=== PATIENT | male | born 1940 | race Caucasian/White ===

== ENCOUNTER → 2017-11-04 | Outpatient (CLI) | payer OTHER | LOC: BMCIMAGING 18:11 | PROVIDERS: ATTEND Emergency Medicine | DX: R05 Cough (principal); R06.02 Shortness of breath ==

== ENCOUNTER 2019-02-03 11:57 | Inpatient (IN) | payer OTHER ==
[2019-02-03 12:45] LABS: PLATELET COUNT 217 10^3/uL (150-400)
[2019-02-03] MEDS ORDERED: NS 2,400 ML IV ONE (13:02)
[2019-02-03 13:15] LABS: INR 1.09 (0.83-1.16); PROTIME(PATIENT) 13.7 SEC (12.0-15.0)
[2019-02-03] MEDS ORDERED: AMPICILLIN/SULBACTAM 3 GM in NS 100 ML IV ONE (13:20)
--- NOTE | 2019-02-03 13:26 | EDPHY ---
H & P Stated Complaint: N/V, dizzy/weak, SOB, cough x2D. Time Seen by Provider: 02/03/19 13:00 HPI/ROS: CHIEF COMPLAINT: Shortness of breath, chest pain, dizziness, vomiting HISTORY OF PRESENT ILLNESS: 78-year-old male presents emergency department reporting that for the last 2 days he has felt "crappy". Patient complains of feeling short of breath with even simple exertion, feeling dizzy, lightheaded, near syncopal, and has had vomiting. No documented fever. He spent all day yesterday in bed. He went to the [facility] primary care physician today and was noted to be tachycardic and was referred to the emergency department. Of note the patient was recently discharged from [facility] after alcohol detox treatment. This was last week. Also notes pain in the right lateral chest wall with deep inspiration. Denies trauma. Patient denies any ill contacts. No history of cardiac issues. No sense palpitations, diarrhea, urinary complaints, or headache. REVIEW OF SYSTEMS: A comprehensive 10 system review of systems was reviewed and is otherwise negative aside from elements mentioned in the history of present illness and medical decision making. PAST MEDICAL HISTORY: COPD, alcohol abuse, recent detox from alcohol. SOCIAL HISTORY: Here with his . Nonsmoker. VITAL SIGNS Reviewed by me. The tachycardic to 110, temperature 37.3 degrees, 118/56. GENERAL: Well-developed, well-nourished, reporting significant shortness of breath with simple movements. HEENT: Atraumatic. Eyes: No icterus, no injection. Mouth: moist mucous membranes. No erythema or lesions. Neck: supple with no adenopathy. LUNGS: Diminished breath sounds throughout. No wheezes. No rhonchi or rales. CARDIAC: Tachycardic but regular. Slightly distant. ABDOMEN: Soft, mild right upper quadrant tenderness. Nondistended. No guarding or rebound. BACK: No CVA tenderness. EXTREMITIES: No trauma. No edema. Range of motion is normal throughout. No tremor. NEURO: Alert and oriented, grossly nonfocal. SKIN: Quite warm to the touch, no rash. PSYCHIATRIC: Normal mentation, no agitation. - Personal History Current Tetanus/Diphtheria Vaccine: Yes - Medical/Surgical History Hx Asthma: No Hx Chronic Respiratory Disease: No Hx Diabetes: No Hx Cardiac Disease: No Hx Renal Disease: No Hx Cirrhosis: No Hx Alcoholism: No Hx HIV/AIDS: No Hx Splenectomy or Spleen Trauma: No Other PMH: knee replaced - Social History Smoking Status: Former smoker Constitutional: Initial Vital Signs Temperature (C) 37.3 C 02/03/19 12:01 Heart Rate 110 H 02/03/19 12:01 Respiratory Rate 20 02/03/19 12:01 Blood Pressure 118/56 L 02/03/19 12:01 Allergies/Adverse Reactions: No Known Allergies Allergy (Verified 02/03/19 12:01) Home Medications: Medication Instructions Recorded Aspirin [Aspirin 81mg (OTC)] 81 mg PO DAILY 12/03/12 Tiotropium Inhaler [Spiriva 1 inh IH DAILY 12/03/12 Inhaler (RX)] celeCOXIB [Celebrex (RX)] 200 mg PO DAILY 12/03/12 Disulfiram [Antabuse 250 MG (*)] 250 mg PO DAILY 02/03/19 Tadalafil 5 mg PO DAILY 02/03/19 amLODIPine BESYLATE [Norvasc 10 mg 10 mg PO DAILY 02/03/19 (*)] buPROPion XL [Wellbutrin Xl] 150 mg PO DAILY 02/03/19 Medical Decision Making - Diagnostics Imaging Results: Imaging Impressions Chest X-Ray 02/03/19 12:35 Impression: Extensive right upper lobe consolidation compatible with pneumonia, new. ED Course/Re-evaluation: 78-year-old male presents emergency department with shortness of breath, tachycardia, and fever. He has been vomiting and also has history of alcohol withdrawal and recent detox complicated by vomiting. IV was placed. Patient's EKG demonstrates sinus tachycardia, first-degree AV block with prolonged CA interval, short runs of ventricular trigeminy. Chest x-ray: Dense right upper lobe consolidation. Lactic acid 3.0. Patient was started on a 30 cc/kilos bolus. Severe sepsis was declared at 1:05 p.m.. Patient received Levaquin. Unasyn was added given the concern about aspiration pneumonia. Course discussed with the hospitalist service. Patient will be admitted to Dr. Denise. Repeat lactic acid: Severe Sepsis/Septic Shock Care Note The patient presents to the ED with pneumonia identified as an acute infection. The patient did have evidence of end-organ dysfunction and met criteria for severe sepsis. This condition was identified by myself at 105 p.m.. The patients vital signs are 118/56, 110, 20, 90%, 37.3. The patient has a venous lactic acid performed within 3 hours of the identification of severe sepsis which was found to be 3.1. The patient has blood cultures drawn and received Levaquin and Unasyn IV, per the severe sepsis treatment protocol. The initial lactate was elevated and rechecked within 6 hours of the identification time of severe sepsis and found to be: 1.2. Differential Diagnosis: Differential diagnosis for the patient's shortness of breath was considered including but not limited to pulmonary infectious processes, aspiration, COPD exacerbation, pulmonary emboli, pulmonary edema, congestive heart failure, and cardiac causes. [facility] [place] Laboratory Results: Laboratory Results 02/03/19 12:35 02/03/19 12:35 02/03/19 02/03/19 02/03/19 12:35 12:35 12:35 WBC 17.41 10^3/uL H 10^3/uL (3.80-9.50) RBC 3.42 10^6/uL L 10^6/uL (4.40-6.38) Hgb 11.8 g/dL L g/dL (13.7-17.5) Hct 34.6 % L % (40.0-51.0) MCV 101.2 fL H fL (81.5-99.8) MCH 34.5 pg H pg (27.9-34.1) MCHC 34.1 g/dL g/dL (32.4-36.7) RDW 11.2 % L % (11.5-15.2) Plt Count 217 10^3/uL 10^3/uL (150-400) MPV 9.4 fL fL (8.7-11.7) Neut % (Auto) 87.5 % H % (39.3-74.2) Lymph % (Auto) 3.0 % L % (15.0-45.0) [place] % (Auto) 8.4 % % (4.5-13.0) Eos % (Auto) 0.0 % L % (0.6-7.6) Baso % (Auto) 0.2 % L % (0.3-1.7) Nucleat RBC Rel Count 0.0 % % (0.0-0.2) Absolute Neuts (auto) 15.23 10^3/uL H 10^3/uL (1.70-6.50) Absolute Lymphs (auto) 0.52 10^3/uL L 10^3/uL (1.00-3.00) Absolute Monos (auto) 1.46 10^3/uL H 10^3/uL (0.30-0.80) Absolute Eos (auto) 0.00 10^3/uL L 10^3/uL (0.03-0.40) Absolute Basos (auto) 0.03 10^3/uL 10^3/uL (0.02-0.10) Absolute Nucleated RBC 0.00 10^3/uL 10^3/uL (0-0.01) Immature Gran % 0.9 % % (0.0-1.1) Immature Gran # 0.16 10^3/uL H 10^3/uL (0.00-0.10) RBC/WBC/PLT Morphology TNP Platelet Estimate TNP PT INR APTT VBG Lactic Acid 3.0 mmol/L H mmol/L (0.7-2.1) Sodium 132 mEq/L L mEq/L (135-145) Potassium 4.2 mEq/L mEq/L (3.5-5.2) Chloride 95 mEq/L L mEq/L (97-110) Carbon Dioxide 23 mEq/l mEq/l (22-31) Anion Gap 14 mEq/L mEq/L (6-14) BUN 22 mg/dL mg/dL (7-23) Creatinine 1.2 mg/dL mg/dL (0.7-1.3) Estimated GFR 59 Glucose 173 mg/dL H mg/dL (70-100) Calcium 8.8 mg/dL mg/dL (8.5-10.4) Total Bilirubin Conjugated Bilirubin Unconjugated Bilirubin AST ALT Alkaline Phosphatase Total Protein Albumin Lipase Nasal Influenza A PCR Nasal Influenza B PCR Ethyl Alcohol RSV (PCR) 02/03/19 02/03/19 02/03/19 12:33 12:30 12:30 WBC RBC Hgb Hct MCV MCH MCHC RDW Plt Count MPV Neut % (Auto) Lymph % (Auto) [place] % (Auto) Eos % (Auto) Baso % (Auto) Nucleat RBC Rel Count Absolute Neuts (auto) Absolute Lymphs (auto) Absolute Monos (auto) Absolute Eos (auto) Absolute Basos (auto) Absolute Nucleated RBC Immature Gran % Immature Gran # RBC/WBC/PLT Morphology Platelet Estimate PT 13.7 SEC SEC (12.0-15.0) INR 1.09 (0.83-1.16) APTT 31.4 SEC SEC (23.0-38.0) VBG Lactic Acid Sodium Potassium Chloride Carbon Dioxide Anion Gap BUN Creatinine Estimated GFR Glucose Calcium Total Bilirubin 0.8 mg/dL mg/dL (0.1-1.4) Conjugated Bilirubin 0.3 mg/dL mg/dL (0.0-0.5) Unconjugated Bilirubin 0.5 mg/dL mg/dL (0.0-1.1) AST 13 IU/L L IU/L (17-59) ALT 23 IU/L IU/L (21-72) Alkaline Phosphatase 68 IU/L IU/L (38-126) Total Protein 6.0 g/dL L g/dL (6.3-8.2) Albumin 3.5 g/dL g/dL (3.5-5.0) Lipase 17 IU/L L IU/L (23-300) Nasal Influenza A PCR NEGATIVE FOR FLU A (NEGATIVE) Nasal Influenza B PCR NEGATIVE FOR FLU B (NEGATIVE) Ethyl Alcohol < 10 mg/dL mg/dL (0-10) RSV (PCR) NEGATIVE FOR RSV (NEGATIVE) Medications Given: Sodium Chloride (Ns) 1,000 mls @ 125 mls/hr IV CONT KITTY Stop: 02/04/19 22:44 Last Admin: 02/03/19 15:38 Dose: 1,000 mls Thiamine HCl 500 mg/ Sodium (Chloride) 105 mls @ 210 mls/hr IV DAILY KITTY Stop: 08/02/19 15:29 Last Admin: 02/03/19 16:22 Dose: 105 mls Ampicillin Sodium/Sulbactam (Sodium 3 gm/ Sodium Chloride) 100 mls @ 200 mls/ hr IV Q6HRS KITTY PRN Reason: Protocol Stop: 03/05/19 17:59 Last Admin: 02/03/19 18:03 Dose: 100 mls Discontinued Medications Albuterol (Proventil Neb) 3 ml IH EDNOW ONE Stop: 02/03/19 13:32 Last Admin: 02/03/19 13:48 Dose: 3 ml Levofloxacin/Dextrose (Levaquin 750 Mg (Premix)) 150 mls @ 100 mls/hr IV EDNOW ONE PRN Reason: Protocol Stop: 02/03/19 14:31 Last Admin: 02/03/19 13:02 Dose: 150 mls Sodium Chloride (Ns) 2,400 mls @ 4,800 mls/hr 30 ml/kg infuse over 30 min ( 2400 ml) IV EDNOW ONE PRN Reason: Protocol Stop: 02/03/19 13:31 Last Admin: 02/03/19 13:05 Dose: 2,400 mls Ampicillin Sodium/Sulbactam (Sodium 3 gm/ Sodium Chloride) 100 mls @ 200 mls/ hr IV EDNOW ONE PRN Reason: Protocol Stop: 02/03/19 13:49 Last Admin: 02/03/19 13:48 Dose: 100 mls Departure - [facility] [place] [facility] Clinical Impression: Hypoxia Pneumonia Qualifiers: Pneumonia type: aspiration pneumonia Aspiration pneumonia type: unspecified Laterality: right Lung location: upper lobe of lung Qualified Code(s): J69.0 - Pneumonitis due to inhalation of food and vomit Dyspnea Qualifiers: Dyspnea type: shortness of breath Qualified Code(s): R06.02 - Shortness of breath; R06.00 - Dyspnea, unspecified; R06.01 - Orthopnea Condition: Fair
[2019-02-03] MEDS ORDERED: ALBUTEROL 3 ML DEYVIAL IH ONE (13:31)
[2019-02-03] MEDS ORDERED: ONDANSETRON DISINTEGRATING 4 MG TAB PO PRN (14:33)
[2019-02-03] MEDS ORDERED: ONDANSETRON 4 MG/2 ML VIAL IVP PRN (14:33)
[2019-02-03] MEDS ORDERED: FLUMAZENIL 0.5 MG/5 ML MDV IVP PRN (14:46)
--- NOTE | 2019-02-03 15:25 | PDGENHP ---
<Rasheeda Stearns - Last Filed: 02/03/19 15:40> History and Physical - Chief Complaint Lightheadedness, vomiting, general malaise - History of Present Illness 78 y/o male w/ hx of COPD and etoh abuse presents w/ 2 days worth of feeling "like crap," which he describes as lightheadedness (pre-syncopal sensation) and non-bloody vomit. He also c/o ZENG w/simple tasks which he normally does not experience. He reports waking up soaking wet one night, however cannot report whether he was feverish. [facility]. CXR reveals an upper right lobe pneumonia. Denies CP, palpitations, nausea, diarrhea. He is being admitted for further work-up, treatment, and monitoring. History Information - Allergies/Home Medication List Allergies/Adverse Reactions: No Known Allergies Allergy (Verified 02/03/19 12:01) Home Medications: Aspirin [Aspirin 81mg (OTC)] 81 mg PO DAILY 12/03/12 [Last Taken 02/03/19] Tiotropium Inhaler [Spiriva Inhaler (RX)] 1 inh IH DAILY 12/03/12 [Last Taken ] celeCOXIB [Celebrex (RX)] 200 mg PO DAILY 12/03/12 [Last Taken 02/03/19] Disulfiram [Antabuse 250 MG (*)] 250 mg PO DAILY 02/03/19 [Last Taken 02/03/19] Tadalafil 5 mg PO DAILY 02/03/19 [Last Taken 02/03/19] amLODIPine BESYLATE [Norvasc 10 mg (*)] 10 mg PO DAILY 02/03/19 [Last Taken ] buPROPion XL [Wellbutrin Xl] 150 mg PO DAILY 02/03/19 [Last Taken 02/03/19] I have personally reviewed and updated: family history, medical history, social history, surgical history - Past Medical History COPD Additional medical history: Etoh abuse. Allergic rhinitis. BPH. Insomnia. Depression - Surgical History Reports: no pertinent surgical hx - Family History Positive for: cancer, CAD - Social History Smoking Status: Former smoker Tobacco Use: Chew (daily. 1/2-1 can a day.) Alcohol Use: Sober (Sober for a few weeks per pt. Recently completed detox program a week ago. Reports drinking heavily for years. Wil Chung, either 1 /2 pint or a bottle daily depending on the day of the week.) Drug Use: None Additional social history: Works at [employer], teaches students how to drive buses. Review of Systems Review of Systems: ROS: 10pt was reviewed & negative except for what was stated in HPI & below Physical Exam Physical Exam: Lab data and imaging were reviewed. Case discussed w/admitting physician, Dr. Sanya Grey WBC: 17.41 w/ left shift Na: 132 Lactic acid: 3.0-1.2 BUN/Cr: 22/1.2 CXR: right upper lobe pna Temp Pulse Resp BP Pulse Ox 37 C 89 18 117/71 92 02/03/19 13:33 02/03/19 14:58 02/03/19 14:58 02/03/19 14:58 02/03/19 14:58 Constitutional: uncomfortable, other (Moderately distressed pt) Eyes: PERRL, anicteric sclera, EOMI Ears, Nose, Mouth, Throat: hearing normal, ears appear normal, no oral mucosal ulcers, poor dentition, dry mucous membranes Cardiovascular: regular rate and rhythym, tachycardia Peripheral Pulses: 2+: dorsalis-pedis (R) (Radial 2+), dorsalis-pedis (L) ( Radial 2+) Respiratory: reduced air movement, rhonchi Gastrointestinal: normoactive bowel sounds, soft, non-tender abdomen, no palpable masses Genitourinary: no bladder fullness, no bladder tenderness Skin: warm, normal color, no rashes or abrasions, no fluctuance, no induration, No mottled Musculoskeletal: full muscle strength, no muscle tenderness, normal joint ROM, no joint effusions Neurologic: AAOx3, sensation intact bilaterally, CN II-XII Intact Psychiatric: interacting appropriately, not encephalopathic, thought process linear, anxious Lymph, Heme, Immunologic: no cervical LAD, no supraclavicular LAD Lab Data & Imaging Review 02/03/19 12:35 02/03/19 12:35 WBC 17.41 10^3/uL (3.80-9.50) H 02/03/19 12:35 RBC 3.42 10^6/uL (4.40-6.38) L 02/03/19 12:35 Hgb 11.8 g/dL (13.7-17.5) L 02/03/19 12:35 Hct 34.6 % (40.0-51.0) L 02/03/19 12:35 MCV 101.2 fL (81.5-99.8) H 02/03/19 12:35 MCH 34.5 pg (27.9-34.1) H 02/03/19 12:35 MCHC 34.1 g/dL (32.4-36.7) 02/03/19 12:35 RDW 11.2 % (11.5-15.2) L 02/03/19 12:35 Plt Count 217 10^3/uL (150-400) 02/03/19 12:35 MPV 9.4 fL (8.7-11.7) 02/03/19 12:35 Neut % (Auto) 87.5 % (39.3-74.2) H 02/03/19 12:35 Lymph % (Auto) 3.0 % (15.0-45.0) L 02/03/19 12:35 [place] % (Auto) 8.4 % (4.5-13.0) 02/03/19 12:35 Eos % (Auto) 0.0 % (0.6-7.6) L 02/03/19 12:35 Baso % (Auto) 0.2 % (0.3-1.7) L 02/03/19 12:35 Nucleat RBC Rel Count 0.0 % (0.0-0.2) 02/03/19 12:35 Absolute Neuts (auto) 15.23 10^3/uL (1.70-6.50) H 02/03/19 12:35 Absolute Lymphs (auto) 0.52 10^3/uL (1.00-3.00) L 02/03/19 12:35 Absolute Monos (auto) 1.46 10^3/uL (0.30-0.80) H 02/03/19 12:35 Absolute Eos (auto) 0.00 10^3/uL (0.03-0.40) L 02/03/19 12:35 Absolute Basos (auto) 0.03 10^3/uL (0.02-0.10) 02/03/19 12:35 Absolute Nucleated RBC 0.00 10^3/uL (0-0.01) 02/03/19 12:35 Immature Gran % 0.9 % (0.0-1.1) 02/03/19 12:35 Immature Gran # 0.16 10^3/uL (0.00-0.10) H 02/03/19 12:35 RBC/WBC/PLT Morphology TNP 02/03/19 12:35 Platelet Estimate TNP 02/03/19 12:35 PT 13.7 SEC (12.0-15.0) 02/03/19 12:30 INR 1.09 (0.83-1.16) 02/03/19 12:30 APTT 31.4 SEC (23.0-38.0) 02/03/19 12:30 VBG Lactic Acid 1.2 mmol/L (0.7-2.1) 02/03/19 13:50 Sodium 132 mEq/L (135-145) L 02/03/19 12:35 Potassium 4.2 mEq/L (3.5-5.2) 02/03/19 12:35 Chloride 95 mEq/L (97-110) L 02/03/19 12:35 Carbon Dioxide 23 mEq/l (22-31) 02/03/19 12:35 Anion Gap 14 mEq/L (6-14) 02/03/19 12:35 BUN 22 mg/dL (7-23) 02/03/19 12:35 Creatinine 1.2 mg/dL (0.7-1.3) 02/03/19 12:35 Estimated GFR 59 02/03/19 12:35 Glucose 173 mg/dL (70-100) H 02/03/19 12:35 Calcium 8.8 mg/dL (8.5-10.4) 02/03/19 12:35 Total Bilirubin 0.8 mg/dL (0.1-1.4) 02/03/19 12:33 Conjugated Bilirubin 0.3 mg/dL (0.0-0.5) 02/03/19 12:33 Unconjugated Bilirubin 0.5 mg/dL (0.0-1.1) 02/03/19 12:33 AST 13 IU/L (17-59) L 02/03/19 12:33 ALT 23 IU/L (21-72) 02/03/19 12:33 Alkaline Phosphatase 68 IU/L (38-126) 02/03/19 12:33 POC Troponin I 0.01 ng/mL (0.00-0.08) 02/03/19 13:29 Total Protein 6.0 g/dL (6.3-8.2) L 02/03/19 12:33 Albumin 3.5 g/dL (3.5-5.0) 02/03/19 12:33 Lipase 17 IU/L (23-300) L 02/03/19 12:33 Nasal Influenza A PCR NEGATIVE FOR FLU A (NEGATIVE) 02/03/19 12:30 Nasal Influenza B PCR NEGATIVE FOR FLU B (NEGATIVE) 02/03/19 12:30 Ethyl Alcohol < 10 mg/dL (0-10) 02/03/19 12:33 RSV (PCR) NEGATIVE FOR RSV (NEGATIVE) 02/03/19 12:30 Assessment & Plan Plan: 78 y/o male w/hx of COPD and etoh abuse presents w/ 2 days of general malaise, subjective fever, lightheadedness and vomiting. He initially presented in severe sepsis w/ high white count, tachy, and elevated lactic acid. He received IV abx and bolus dose of fluids from ED and since that time period, his vitals have stabilized and lactic acid count was reduced. Current vitals: BP 117/71, pulse 89, Resp 18, 37.0c, 92% RA. #Suspected aspiration pneumonia: He reports waking up and actively vomiting. He is a poor historian. Received Levaquin and Unasyn in ED. -Blood cultures pending -Influenza and RSV negative; full resp panel pending -Will cont to treat aspiration PNA over CAP w/ unasyn -CBC/CMP in AM -OT to evaluate and treat -Incentive spirometry #Etoh abuse: Recently completed a detox program a week ago. -Cont antabuse -CIWA scale -Thiamine bolus + maintenance -Case management consulted #Hypovolemia hyponatremia: Suspected for active vomiting and decreased PO intake -Received bolus in ED; cont IVF x 2 bags -CBC/CMP in AM #COPD: Received albuterol treatment in ED. -Cont Spiriva -Incentive spirometry Diet: Regular VTE ppx: Heparin subq Code: Full Dispo: Admit to obs <Sanya Denise - Last Filed: 02/03/19 19:13> History and Physical - History of Present Illness Review of Systems Review of Systems: Physical Exam Physical Exam: Temp Pulse Resp BP Pulse Ox 37.1 C 98 20 128/59 H 95 02/03/19 15:26 02/03/19 15:26 02/03/19 15:26 02/03/19 15:26 02/03/19 15:26 O2 (L/minute) 2 Lab Data & Imaging Review 02/03/19 12:35 02/03/19 12:35 WBC 17.41 10^3/uL (3.80-9.50) H 02/03/19 12:35 RBC 3.42 10^6/uL (4.40-6.38) L 02/03/19 12:35 Hgb 11.8 g/dL (13.7-17.5) L 02/03/19 12:35 Hct 34.6 % (40.0-51.0) L 02/03/19 12:35 MCV 101.2 fL (81.5-99.8) H 02/03/19 12:35 MCH 34.5 pg (27.9-34.1) H 02/03/19 12:35 MCHC 34.1 g/dL (32.4-36.7) 02/03/19 12:35 RDW 11.2 % (11.5-15.2) L 02/03/19 12:35 Plt Count 217 10^3/uL (150-400) 02/03/19 12:35 MPV 9.4 fL (8.7-11.7) 02/03/19 12:35 Neut % (Auto) 87.5 % (39.3-74.2) H 02/03/19 12:35 Lymph % (Auto) 3.0 % (15.0-45.0) L 02/03/19 12:35 [place] % (Auto) 8.4 % (4.5-13.0) 02/03/19 12:35 Eos % (Auto) 0.0 % (0.6-7.6) L 02/03/19 12:35 Baso % (Auto) 0.2 % (0.3-1.7) L 02/03/19 12:35 Nucleat RBC Rel Count 0.0 % (0.0-0.2) 02/03/19 12:35 Absolute Neuts (auto) 15.23 10^3/uL (1.70-6.50) H 02/03/19 12:35 Absolute Lymphs (auto) 0.52 10^3/uL (1.00-3.00) L 02/03/19 12:35 Absolute Monos (auto) 1.46 10^3/uL (0.30-0.80) H 02/03/19 12:35 Absolute Eos (auto) 0.00 10^3/uL (0.03-0.40) L 02/03/19 12:35 Absolute Basos (auto) 0.03 10^3/uL (0.02-0.10) 02/03/19 12:35 Absolute Nucleated RBC 0.00 10^3/uL (0-0.01) 02/03/19 12:35 Immature Gran % 0.9 % (0.0-1.1) 02/03/19 12:35 Immature Gran # 0.16 10^3/uL (0.00-0.10) H 02/03/19 12:35 RBC/WBC/PLT Morphology TNP 02/03/19 12:35 Platelet Estimate TNP 02/03/19 12:35 PT 13.7 SEC (12.0-15.0) 02/03/19 12:30 INR 1.09 (0.83-1.16) 02/03/19 12:30 APTT 31.4 SEC (23.0-38.0) 02/03/19 12:30 VBG Lactic Acid 1.2 mmol/L (0.7-2.1) 02/03/19 13:50 Sodium 132 mEq/L (135-145) L 02/03/19 12:35 Potassium 4.2 mEq/L (3.5-5.2) 02/03/19 12:35 Chloride 95 mEq/L (97-110) L 02/03/19 12:35 Carbon Dioxide 23 mEq/l (22-31) 02/03/19 12:35 Anion Gap 14 mEq/L (6-14) 02/03/19 12:35 BUN 22 mg/dL (7-23) 02/03/19 12:35 Creatinine 1.2 mg/dL (0.7-1.3) 02/03/19 12:35 Estimated GFR 59 02/03/19 12:35 Glucose 173 mg/dL (70-100) H 02/03/19 12:35 Calcium 8.8 mg/dL (8.5-10.4) 02/03/19 12:35 Total Bilirubin 0.8 mg/dL (0.1-1.4) 02/03/19 12:33 Conjugated Bilirubin 0.3 mg/dL (0.0-0.5) 02/03/19 12:33 Unconjugated Bilirubin 0.5 mg/dL (0.0-1.1) 02/03/19 12:33 AST 13 IU/L (17-59) L 02/03/19 12:33 ALT 23 IU/L (21-72) 02/03/19 12:33 Alkaline Phosphatase 68 IU/L (38-126) 02/03/19 12:33 POC Troponin I 0.01 ng/mL (0.00-0.08) 02/03/19 13:29 Total Protein 6.0 g/dL (6.3-8.2) L 02/03/19 12:33 Albumin 3.5 g/dL (3.5-5.0) 02/03/19 12:33 Lipase 17 IU/L (23-300) L 02/03/19 12:33 Urine Color ROBBI 02/03/19 15:31 Urine Appearance HAZY 02/03/19 15:31 Urine pH 5.0 (5.0-7.5) 02/03/19 15:31 Ur Specific [place] 1.028 (1.002-1.030) 02/03/19 15:31 Urine Protein 1+ (NEGATIVE) H 02/03/19 15:31 Urine Ketones TRACE (NEGATIVE) H 02/03/19 15:31 Urine Blood NEGATIVE (NEGATIVE) 02/03/19 15:31 Urine Nitrate NEGATIVE (NEGATIVE) 02/03/19 15:31 Urine Bilirubin NEGATIVE (NEGATIVE) 02/03/19 15:31 Urine Urobilinogen 2.0 EU (0.2-1.0) H 02/03/19 15:31 Ur Leukocyte Esterase NEGATIVE (NEGATIVE) 02/03/19 15:31 Urine RBC 1-3 /hpf (0-3) 02/03/19 15:31 Urine WBC 1-3 /hpf (0-3) 02/03/19 15:31 Ur Epithelial Cells TRACE /lpf (NONE-1+) 02/03/19 15:31 Hyaline Casts 25-50 /lpf (0-1) H 02/03/19 15:31 Urine Mucus 1+ /lpf (NONE-1+) 02/03/19 15:31 Urine Glucose NEGATIVE (NEGATIVE) 02/03/19 15:31 Nasal Influenza A PCR NEGATIVE FOR FLU A (NEGATIVE) 02/03/19 12:30 Nasal Influenza B PCR NEGATIVE FOR FLU B (NEGATIVE) 02/03/19 12:30 Ethyl Alcohol < 10 mg/dL (0-10) 02/03/19 12:33 RSV (PCR) NEGATIVE FOR RSV (NEGATIVE) 02/03/19 12:30 Assessment & Plan Assessment: Marcelo Dow is a 78 year old male who presented with acute onset of shortness of breath which started the day prior to admission. he reports a hx of alcohol abuse and does say that prior to admission he developed some nausea and vomiting and then passed out. He is ambiguous about his drinking history and says that he does drink regularly and as much as a pint a day of bourbon but was elusive about his last drink. On examination he does have diminished breath sounds in his right lung but otherwise his exam is unremarkable. His chest x ray does show a substantial right upper lobe infiltrate and he is high risk for aspiration. Given these findings, will plan to treat for aspiration with unasyn , place on CIWA scale and monitor for etoh withdrawal. respiratory pathogen PCR panel is pending to assist in guiding treatment. Will monitor response as well to abx. Other issues per Lynette Hunt excellent assessment and plan.
[2019-02-03] MEDS: NS 1,000 ML IV SCH (15:38)
[2019-02-03] MEDS: THIAMINE HCL 500 MG in NS 100 ML IV SCH (16:22)
[2019-02-03] MEDS: AMPICILLIN/SULBACTAM 3 GM in NS 100 ML IV SCH (18:03)
[2019-02-03] MEDS: ACETAMINOPHEN 325 MG TAB PO PRN (20:06)
[2019-02-03] MEDS: traZODone 50 MG TAB PO SCH (21:53)
[2019-02-03] MEDS: HEPARIN 5,000 UNIT/0.5 ML INJ SC SCH (21:53)
[2019-02-04] MEDS: AMPICILLIN/SULBACTAM 3 GM in NS 100 ML IV SCH ×2 (01:03→06:10)
[2019-02-04] MEDS: NS 1,000 ML IV SCH (01:04)
[2019-02-04] MEDS: ACETAMINOPHEN 325 MG TAB PO PRN ×2 (02:25→11:55)
[2019-02-04] MEDS: LORazepam 2 MG/ML INJ IVP PRN (05:25)
[2019-02-04 05:33] LABS: PLATELET COUNT 177 10^3/uL (150-400)
[2019-02-04] MEDS: HEPARIN 5,000 UNIT/0.5 ML INJ SC SCH ×3 (06:10→22:36)
[2019-02-04] MEDS: TIOTROPIUM INHALER 18 MCG/DOSE 5 DOSE/MDI IH SCH (08:54)
[2019-02-04] MEDS ORDERED: TADALAFIL 5 MG PO SCH (09:00)
[2019-02-04] MEDS ORDERED: DISULFIRAM 250 MG TAB PO SCH (09:00)
[2019-02-04] MEDS: ASPIRIN 81 MG CHEWABLE TAB PO SCH (10:01)
[2019-02-04] MEDS: buPROPion XL 150 MG TAB PO SCH (10:01)
[2019-02-04] MEDS: THIAMINE HCL 500 MG in NS 100 ML IV SCH (11:32)
[2019-02-04] MEDS: PIPERACILLIN/TAZO 4.5 GM/DEX 100 ML IV SCH ×3 (11:55→23:56)
--- NOTE | 2019-02-04 12:06 | ASMTCMCOM ---
CM Note CM Note Notes: Patient admitted w lightheadedness, vomiting, fatigue. Suspicion for aspiration PNA. He is being treated accordingly. He has a hx of COPD and EtOH abuse - per H&P, he just completed a detox program at [facility]. He lives with his . PT/OT have been ordered. Discharge needs TBD. Case Management will follow. Date Signed: 02/04/2019 12:05 PM Electronically Signed By:Kat Garcia RN
[2019-02-04] MEDS: AZITHROMYCIN IV 500 MG in NS 250 ML IV SCH (13:19)
[2019-02-04] MEDS: VANCOMYCIN HCL/NORMAL SALINE 250 ML IV ONE ×2 (14:10→14:12)
--- NOTE | 2019-02-04 15:23 | PDCONSULT ---
Auto Wash Buffer Note: ASSESSMENT 78 yo M w h/o tobacco use, mild copd and etoh abuse transferred to ICU with acute hypoxemic respiratory failure and severe pneumonia # severe hypoxemic respiratory failure. due to pna with underlying COPD. Severe. requiring HFNC, will likely need intubation # pneumonia. severe. some RF for MDR given rehab stay and relative immunosuppression given chronic etoh use # RLL nodule with adjacent cavitation. DDx include maligancy, fungal infection # Dense SHRUTI infiltrate. likely pna but bronchoalveolar carcinoma also possible # encephalopathy. Due to critical illness PLAN # broad antibiotics to vanc Zosyn azithromycin given critical illness # add duonebs # if continues to worsen on HFNC will proceed with intubation. # follow-up culture data # check urine Legionella antigen although my clinical suspicion is low # defer cancer evaluation while hospitalized as it will not change acute management. # Feeding - NPO # Analgesia APap # Sedation none # Thromboprophylaxis - SQ hep # Head of bed elevated # Ulcer prophylaxis - H2 alex # Glucose SSI # Skin no skin breakdown # Delirium - delirium precautions Patient is critical ill due to life threatening organ dysfunction and is at high risk for decompensation and . Total critical care time, excluding procedures: 85 min Chief complaint Nausea, shortness of breath HPI House very pleasant 78-year-old male with 30+ smoking history quit 20 years ago and active daily to use as well as prior alcohol dependence who presented emergency department with nausea, vomiting, shortness of breath and presyncopal symptoms. He also complains of 2-3 days of night sweats. He denies chest pain, rash, dysuria, diarrhea or constipation. Emergency department he was found to have a right upper lobe infiltrate. Was transferred to the floor and placed on Levaquin. He subsequently decompensated was transferred to the ICU with increasing hypoxemic respiratory failure. After discussions with hospitalist a CT was performed that demonstrated dense right upper lobe opacification right lower lobe nodule and adjacent cavitation. Allergies None drug allergies Medication Medication reconciliation has been performed. See EMR for full details Medical history COPD, tobacco dependence, depression, insomnia, benign prostatic hypertrophy Social history 30-40 pack-year history quit 15 20 years ago, active daily tumor 1/2 to 1 can daily, sober times 3-4 weeks. Recently completed detox program. 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 Significant for tachypnea to 30 and low oxygen saturation on high-flow nasal cannula. GEN: Moderate distress lying in bed NEURO: Cranial nerves 2-12 grossly intact, intermittently conversant however delirious by CAM assessment HEENT: PERRL, EOMI, MMM, OP clear NECK: supple, trachea midline CHEST normal shape, no pes excavatum CVS: Tachycardic, no murmurs or gallops PULM: Coarse breath sounds right upper and mid lung field ABD: soft, NT, ND, NABS EXT: no swelling, no cyanosis, full ROM SKIN: warm, dry, intact, no rash PSYCH delirious IMAGING 02/04/19 CT chest. Dense consolidation in RUL lobe with possible early lung abscess. RML consolidation with parapneumonic effusion. 2 cm solid nodule with adjacent cavitary lesion. LABS reviewed. significant for a leukocytosis with L shift, elevated procalcitonin,
[2019-02-04] MEDS ORDERED: PROPOFOL/EMULSION 1,000 MG/100 ML BOTTLE IV ONE (17:01)
--- NOTE | 2019-02-04 17:02 | HOSPPROG ---
Hospitalist Progress Note Assessment/Plan: 78 y/o male w/hx of COPD and etoh abuse admitted with PNA. Acute hypoxemic respiratory failure- overnight requring up to 6 liters. repeat CXR with RUL PNA concerning. CT today with large cavity and associated nodule which could be mycetoma vs malignancy vs other. -transferred to ICU -check legionella/strep pneumo antigens -broaden to vanc/zosyn/azithro -ABG,lactate -on 40 liters vapotherm, if worsens will likely need intubation. -add nebs Etoh abuse: Recently completed a detox program a week ago. -Cont antabuse -CIWA scale -Thiamine bolus + maintenance -Case management consulted Hypovolemia hyponatremia: Suspected for active vomiting and decreased PO intake -Received bolus in ED; cont IVF x 2 bags -CBC/CMP in AM COPD: Received albuterol treatment in ED. -Cont Spiriva -Incentive spirometry -nebs Encephalopathy- likely from underlying illness. is oriented X3 but then with inappropriate answers to further questions and trying to speak into his tv remote like a phone. BPH- on tadalafil Depression- cont celexa HTN- norvasc Diet: Regular VTE ppx: Heparin subq Code: Full Dispo: Admit to obs Subjective: no complaints. does endorse coughing a lot. seems confused. Objective: Vital Signs Temp Pulse Resp BP Pulse Ox 37.2 C 89 28 H 110/62 88 L 02/04/19 10:39 02/04/19 12:00 02/04/19 12:00 02/04/19 12:00 02/04/19 12:00 Microbiology 02/03/19 16:25 Respiratory Panel (PCR) - Final Nasal, Sinus - Swab No Organism Detected By Pcr Laboratory Results 02/04/19 04:06 02/04/19 04:06 02/03/19 02/04/19 02/05/19 05:59 05:59 05:59 Intake Total 1660 230 Output Total 425 Balance 1235 230 PT 13.7 SEC (12.0-15.0) 02/03/19 12:30 INR 1.09 (0.83-1.16) 02/03/19 12:30 - Physical Exam Constitutional: no apparent distress, appears nourished Eyes: PERRL Ears, Nose, Mouth, Throat: moist mucous membranes Cardiovascular: regular rate and rhythym Respiratory: inspiratory crackles, other (right upper and middle lung with crackles. ) Gastrointestinal: normoactive bowel sounds Genitourinary: no bladder fullness Skin: warm Musculoskeletal: full muscle strength Neurologic: AAOx3 Psychiatric: encephalopathic Lymph, Heme, Immunologic: no cervical LAD ICD10 Worksheet Patient Problems: Problems Problem Status Onset Dyspnea Acute Hypoxia Acute Pneumonia Acute
[2019-02-04] MEDS ORDERED: PHENYLEPHRINE HCL 100 MCG/ML SYR ONE (17:14)
--- NOTE | 2019-02-04 17:27 | PDMN ---
Medical Necessity Medical necessity: Change to inpt as of 02/04/19 @ 1553, pt meets inpt criteria per MD order and MCG M-282, Pneumonia. 78 y/o w/hx COPD and ETOH abuse ( recently completed detox program) admitted w/PNA. Upgraded to inpt for ongoing severe AHRF requiring 6L O2 HFNC, on 40 L vapotherm, may eventually need intubation, hyponatremia, ICU care. Est LOS>2MN for ongoing eval/management of above.
[2019-02-04] MEDS ORDERED: EPINEPHrine 1 MG/10 ML SYR IVP ONE (17:51)
[2019-02-04] MEDS ORDERED: EPINEPHrine 1 MG/ML INJ ONE (17:52)
--- NOTE | 2019-02-04 17:58 | SUROPNOTE ---
PATRICIA Operative Report - Surgery Emergency Endotracheal Intubation Date and Time 02/04/19 6689 Operators S Eliel Gallo MD Indication acute hypoxemic respiratory failure Consent Verbal consent was obtained via Preoxygenation HFNC, BVM Medications Versed 4 mg Ketamine 200 mg Rocuronium 100 mg Equipment Mac 3 8 ETT Maccormick loza grade view intubation 2 Number of Attempts 1 Post Procedure Placement was confirmed with capnography, breath sounds were ausculated bilaterally. Umbilical tape, ETT parra, 24 cm at teeth, CXR ordered Complications None
[2019-02-04] MEDS ORDERED: MIDAZOLAM 2 MG/2 ML VIAL IVP ONE (18:00)
--- NOTE | 2019-02-04 18:05 | SUROPNOTE ---
PATRICIA Operative Report - Surgery PROCEDURE NOTE: Flexible bronchoscopy with bronchoalveolar lavage and brushings Procedure Machined Parts Quality Inspector S Eliel Gallo MD Procedure: Flexible bronchoscopy with bronchoalveolar lavage and endobronchial brushings Preoperative diagnosis: Pneumonia, respiratory failure, pulmonary nodule Postoperative diagnosis: Pneumonia, respiratory failure, pulmonary nodule Consent: Obtained from prior to procedure after explanation of the procedure, alternatives, risks, and benefits. Anesthesiologist NA Sedation Type: deep sedation Sedation Medications: propofol, ketamine Medications: none Procedure Summary: Time out was performed. The bronchoscope was then introduced via the endotracheal into the trachea. Entire tracheobronchial tree was examined. The main grady appeared sharp. The entire tracheobronchial tree was was inspected with grossly normal mucosa. There was scant mucus that was aspirated. Due to concerns for malignancy on imaging endobronchial brushings were performed in the posterior and lateral segments of the RLL as well as the anterior segment of the RUL. These were placed in ThinPrep and sent to cytology. Next, a formal BAL was performed in the right middle lobe with instillation of 100 cc of normal saline and return of 40 cc of cloudy p.r.n. Fluid. There was minor airways bleeding after the procedure that resolved quickly after tamponading the segment by applying suction. EBL none Complications: None Impression: pneumonia, resp failure, possible cancer Items to Follow-up: BAL fluid sent cell count, diff, Gram stain and culture, cytology on brushings, aspergillus galactomannan S Eliel Gallo MD Pulmonary and Critical Care Medicine [phone]
[2019-02-04] MEDS ORDERED: KETAMINE 200 MG/20 ML VIAL IVP ONE (18:15)
[2019-02-04] MEDS ORDERED: ROCURONIUM 100 MG/10 ML VIAL IVP ONE (18:15)
[2019-02-04] MEDS: PROPOFOL/EMULSION 100 ML IV SCH (18:19)
[2019-02-04] MEDS ORDERED: NOREPINEPHRINE BITARTRATE 4 MG in NS 500 ML IV SCH (19:30)
[2019-02-04] MEDS ORDERED: NS 1,000 ML IV SCH (21:30)
[2019-02-04] MEDS: traZODone 50 MG TAB PO SCH (22:36)
[2019-02-04] MEDS: MIDODRINE HCL 10 MG TAB PO SCH (22:36)
[2019-02-05] MEDS: VANCOMYCIN 750 MG in D5W 150 ML IV SCH ×2 (00:34→12:25)
[2019-02-05] MEDS: PROPOFOL/EMULSION 100 ML IV SCH ×3 (00:57→17:47)
[2019-02-05] MEDS: fentaNYL 100 MCG/2 ML INJ IVP PRN ×3 (05:05→16:37)
[2019-02-05] MEDS: HEPARIN 5,000 UNIT/0.5 ML INJ SC SCH (05:34)
[2019-02-05] MEDS: PIPERACILLIN/TAZO 4.5 GM/DEX 100 ML IV SCH ×3 (05:34→17:43)
[2019-02-05] MEDS: MIDODRINE HCL 10 MG TAB PO SCH (05:34)
[2019-02-05] MEDS: LORazepam 2 MG/ML INJ IVP PRN (07:53)
[2019-02-05] MEDS: AZITHROMYCIN IV 500 MG in NS 250 ML IV SCH (08:26)
[2019-02-05] MEDS: TIOTROPIUM INHALER 18 MCG/DOSE 5 DOSE/MDI IH SCH (08:31)
[2019-02-05] MEDS ORDERED: IPRATROPIUM/ALBUTEROL 3 ML DEYVIAL IH PRN (08:35)
[2019-02-05] MEDS ORDERED: MIDODRINE HCL 10 MG TAB TUBE SCH (09:00)
[2019-02-05] MEDS: ASPIRIN 81 MG CHEWABLE TAB PO SCH (09:21)
[2019-02-05] MEDS: FAMOTIDINE 20 MG TAB TUBE SCH ×2 (09:21→22:44)
[2019-02-05] MEDS: buPROPion XL 150 MG TAB PO SCH (09:21)
[2019-02-05] MEDS: THIAMINE HCL 500 MG in NS 100 ML IV SCH (09:48)
[2019-02-05] MEDS: CHLORHEXIDINE GLUCONATE 15 ML UDL PO SCH ×2 (09:52→22:44)
[2019-02-05] MEDS: ENOXAPARIN 40 MG/0.4 ML SYR SC SCH (11:59)
[2019-02-05] MEDS: predniSONE 20 MG TAB TUBE SCH (12:25)
--- NOTE | 2019-02-05 12:38 | PDINTPN ---
Java Analyst Progress Note Assessment/Plan: ASSESSMENT 78 yo M w h/o tobacco use, mild copd and etoh abuse transferred to ICU with acute hypoxemic respiratory failure and severe pneumonia # severe hypoxemic respiratory failure. intubated 02/04/19. due to pna with underlying COPD. Does not meet criteria for ARDS based on unilateral infiltrates. Synchronous with ventilator with deep sedation so no role for paralysis. # pneumonia. severe. some RF for MDR given rehab stay and relative immunosuppression given chronic etoh use. Bronch on 02/04/19 with significant neutrophilia but no organisms. CT with possible early abscess. # RLL nodule with adjacent cavitation. DDx include malignancy, aspergilloma/ mycetoma. S/p brushing 02/04/19. Defer further workup to outpatient # Dense RUL infiltrate. due to pna but underlying bronchoalveolar carcinoma also possible # encephalopathy. Due to critical illness # AE COPD. due to above # tobacco dependence. long standing tobacco use, quit 7 years prior # h/o etoh dependence. recently completed rehab. no etoh in >2 weeks per report PLAN # vanc, Zosyn, azithromycin, given critical illness. Will narrow to azithro ( 1.5 g total dose) plus CTX if cultures remain negative at 48-72 hours # steroids for COPD exacerbation, which will also help attenuate severe CAP # duonebs # lung protective ventilation # follow-up culture data, urine legionella antigen # defer further nodule work up to outpatient setting, as it will not change acute management. # Feeding - start TFs # Analgesia prn fentanyl # Sedation propofol # Thromboprophylaxis - SQ hep # Head of bed elevated # Ulcer prophylaxis - H2 alex # Glucose SSI # Skin no skin breakdown # Delirium - delirium precautions IMAGING I reviewed interpreted radiographic images as well as radiology reads 02/05/19 CXR -ETT in position. stable appearance of dense RUL infiltrate EVENTS 02/03/19 admission 02/04/19 intubation, bronchoscopy, BAL and brushings CX DATA 02/03/19 BCX NGTD 02/04/19 BAL pending. neutrophilia Patient is critical ill due to life threatening organ failure and is at high risk for decompensation and . Total critical care time, excluding procedures: 90 min which was spend rounding on patient, review chart, adjusting ventilator and medications, and discussion with family Subjective: Intubated yesterday for increasing hypoxemic respiratory failure. Transiently on low-dose peripheral norepinephrine overnight. Weaned off this morning. Some agitation and given Ativan this morning. Number somnolent synchronous with the ventilator. Chest x-ray grossly unchanged from yesterday. BAL fluid with significant neutrophilia but no organisms. Objective: Vital Signs Temp Pulse Resp BP Pulse Ox 37.3 C 76 25 H 116/57 L 95 02/05/19 12:00 02/05/19 12:00 02/05/19 12:00 02/05/19 12:00 02/05/19 12:00 Microbiology 02/04/19 18:28 Gram Stain - Final Bronchial Alveolar Lavage - Right Upper Lobe Laboratory Results 02/05/19 04:20 02/05/19 04:20 02/04/19 02/05/19 02/06/19 05:59 05:59 05:59 Intake Total 2200 7.3 Output Total 1117 235 Balance 1083 -227.7 PT 13.7 SEC (12.0-15.0) 02/03/19 12:30 INR 1.09 (0.83-1.16) 02/03/19 12:30 Physical Exam - Physical Exam General Appearance: obtunded EENT: PERRL/EOMI, ET tube Neck: normal inspection, No thyromegaly Respiratory: chest non-tender, other (Course breath sounds right upper lung dela cruz, no rales) Cardiac/Chest: normal peripheral pulses, regular rate, rhythm, No edema Abdomen: normal bowel sounds, non-tender Skin: normal color, warm/dry, No cyanosis Neuro/Psych: other (Intubated sedated no focal deficits.) ICD10 Worksheet Patient Problems: Problems Problem Status Onset Dyspnea Acute Hypoxia Acute Pneumonia Acute
[2019-02-05] MEDS: MIDODRINE HCL 10 MG TAB TUBE SCH ×2 (14:21→22:43)
--- NOTE | 2019-02-05 16:09 | HOSPPROG ---
Hospitalist Progress Note Assessment/Plan: 78 y/o male w/hx of COPD and etoh abuse admitted with PNA. Subsequent decompensation requiring intubation and sedation. Acute hypoxemic respiratory failure- Intubated on 02/04, etiology due to PNA with COPD and exacerbated by right mass/cavitary lesion. CT today with large cavity and associated nodule which could be mycetoma vs malignancy vs other. -BAL obtained 02/04 with cultures pending. -legionella/strep pneumo antigens pending -cont vanc/zosyn/azithro, narrow if no cultures in next 1-2 days. -nebs -vent bundle, diprivan, fentanyl for sedation, daily SBT as able -steroids added for possible COPD RLL nodule with cavitary lesion- noted on CT scan, BAL yesterday with brushings obtained. await pathology and culture data. Etoh abuse: Recently completed a detox program a week ago -no evidence of acute wd Hypovolemia hyponatremia: Suspected for active vomiting and decreased PO intake -imrpoved with fluids. -CBC/CMP in AM COPD: Received albuterol treatment in ED. -nebs, steroids as above -treat PNA as above Encephalopathy- likely from underlying illness. currently sedated. BPH- on tadalafil, resume as able. Depression- celexa HTN- meds on hold, given borderline pressures, has not required pressor support so far. Diet: TF started today VTE ppx: Heparin subq, H2 alex. Code: Full Dispo: remain inpatient ICu for resp failure, PNA I spent 50 minutes of critical care time on the management of this patient with over half spent on direct patient care. Subjective: intubated and sedated. appears comfortable Objective: Vital Signs Temp Pulse Resp BP Pulse Ox 37.3 C 72 21 H 133/67 H 92 02/05/19 12:00 02/05/19 15:00 02/05/19 15:00 02/05/19 15:00 02/05/19 15:00 Microbiology 02/04/19 18:28 Gram Stain - Final Bronchial Alveolar Lavage - Right Upper Lobe Laboratory Results 02/05/19 04:20 02/05/19 04:20 02/04/19 02/05/19 02/06/19 05:59 05:59 05:59 Intake Total 2200 833.3 Output Total 1117 270 Balance 1083 563.3 PT 13.7 SEC (12.0-15.0) 02/03/19 12:30 INR 1.09 (0.83-1.16) 02/03/19 12:30 - Physical Exam Constitutional: no apparent distress Eyes: PERRL, anicteric sclera Ears, Nose, Mouth, Throat: moist mucous membranes Cardiovascular: no murmur, rub, or gallop Respiratory: no respiratory distress, other (on vent, synchronous with vent) Gastrointestinal: normoactive bowel sounds Genitourinary: no bladder fullness, james in urethra Skin: warm Musculoskeletal: generalized weakness Neurologic: other (unable to assess) Psychiatric: encephalopathic Lymph, Heme, Immunologic: no cervical LAD ICD10 Worksheet Patient Problems: Problems Problem Status Onset Dyspnea Acute Hypoxia Acute Pneumonia Acute
[2019-02-06] MEDS: PIPERACILLIN/TAZO 4.5 GM/DEX 100 ML IV SCH ×2 (00:32→05:53)
[2019-02-06] MEDS: fentaNYL 100 MCG/2 ML INJ IVP PRN (00:59)
[2019-02-06] MEDS: PROPOFOL/EMULSION 100 ML IV SCH ×4 (01:02→18:18)
[2019-02-06] MEDS ORDERED: VANCOMYCIN HCL/NORMAL SALINE 250 ML IV SCH (01:30)
[2019-02-06 04:28] LABS: PLATELET COUNT 256 10^3/uL (150-400)
[2019-02-06] MEDS: MIDODRINE HCL 10 MG TAB TUBE SCH (05:53)
[2019-02-06] MEDS: VANCOMYCIN 750 MG in D5W 150 ML IV SCH (07:01)
--- NOTE | 2019-02-06 07:30 | CPEKG ---
Test Reason : OPEN Blood Pressure : / mmHG Vent. Rate : 105 BPM Atrial Rate : 104 BPM P-R Int : 228 ms QRS Dur : 082 ms QT Int : 317 ms P-R-T Axes : 076 055 062 degrees QTc Int : 420 ms Sinus tachycardia Ventricular trigeminy Prolonged KS interval Anterior infarct, old Confirmed by Migue Medellin ([id number]) on 02/06/2019 7:29:27 AM Referred By: PHYSICIAN ED Confirmed By:Migue Medellin
--- NOTE | 2019-02-06 09:18 | HOSPPROG ---
Hospitalist Progress Note Assessment/Plan: 78 y/o male w/hx of COPD and etoh abuse admitted with PNA, RUL nodule. Subsequent decompensation requiring intubation and sedation. Acute hypoxemic respiratory failure- Intubated on 02/04, etiology due to PNA with COPD and exacerbated by right mass/cavitary lesion. CT with large cavity and associated nodule which could be mycetoma vs malignancy vs other. BAL obtained 02/04 with cultures pending. legionella/strep pneumo antigens pending cont vanc/zosyn/azithro, micro neg thus far nebs vent bundle, diprivan, fentanyl for sedation, daily SBT as able steroids added for possible COPD RLL nodule with cavitary lesion- noted on CT scan, BAL yesterday with brushings obtained. await pathology and culture data. will need open bx if brushings non diagnostic Etoh abuse: Recently completed a detox program a week ago no evidence of acute wd Hypovolemia hyponatremia: Suspected for active vomiting and decreased PO intake improved with fluids. CBC/CMP in AM COPD: Received albuterol treatment in ED. nebs, steroids as above treat PNA as above Encephalopathy- likely from underlying illness. currently sedated. BPH- on tadalafil, resume as able. Depression- celexa HTN- meds on hold, given borderline pressures, has not required pressor support so far. Diet: TF started today VTE ppx: Heparin subq, H2 alex. Code: Full Dispo: remain inpatient ICu for resp failure, PNA 40 minutes crit care Subjective: case d/w dr corey. cxr w dense RUL pneumonia (interp by me) Objective: Vital Signs Temp Pulse Resp BP Pulse Ox 36.5 C 72 27 H 141/61 H 97 02/06/19 08:00 02/06/19 08:02 02/06/19 08:02 02/06/19 08:00 02/06/19 08:02 Microbiology 02/04/19 18:28 Gram Stain - Final Bronchial Alveolar Lavage - Right Upper Lobe Laboratory Results 02/06/19 04:15 02/06/19 04:15 02/05/19 02/06/19 02/07/19 05:59 05:59 05:59 Intake Total 2200 2622.3 Output Total 1117 920 Balance 1083 1702.3 PT 13.7 SEC (12.0-15.0) 02/03/19 12:30 INR 1.09 (0.83-1.16) 02/03/19 12:30 - Physical Exam Constitutional: other (intubated, sedated, opens eyes to voice) Eyes: PERRL, anicteric sclera Ears, Nose, Mouth, Throat: moist mucous membranes, hearing normal Cardiovascular: regular rate and rhythym, no murmur, rub, or gallop Respiratory: no respiratory distress, no rales or rhonchi Gastrointestinal: normoactive bowel sounds, soft, non-tender abdomen Genitourinary: no bladder fullness, james in urethra Skin: warm, normal color Musculoskeletal: No full muscle strength Neurologic: No AAOx3 Psychiatric: No interacting appropriately ICD10 Worksheet Patient Problems: Problems Problem Status Onset Dyspnea Acute Hypoxia Acute Pneumonia Acute
[2019-02-06] MEDS: AZITHROMYCIN IV 500 MG in NS 250 ML IV SCH (09:41)
[2019-02-06] MEDS: ENOXAPARIN 40 MG/0.4 ML SYR SC SCH (09:42)
[2019-02-06] MEDS: predniSONE 20 MG TAB TUBE SCH (09:42)
[2019-02-06] MEDS: FAMOTIDINE 20 MG TAB TUBE SCH ×2 (09:43→20:55)
[2019-02-06] MEDS: THIAMINE HCL 100 MG TAB TUBE SCH (09:43)
[2019-02-06] MEDS: CHLORHEXIDINE GLUCONATE 15 ML UDL PO SCH ×2 (10:09→20:51)
[2019-02-06] MEDS ORDERED: MIDODRINE HCL 10 MG TAB TUBE PRN (10:34)
[2019-02-06] MEDS ORDERED: LIDOCAINE 1% 300 MG/30 ML SDV MISC ONE (10:45)
--- NOTE | 2019-02-06 11:03 | PDINTPN ---
Assistant Prosecuting Attorney Progress Note Assessment/Plan: Assessment: ASSESSMENT 78 yo M w h/o tobacco use, mild copd and etoh abuse transferred to ICU with acute hypoxemic respiratory failure due to severe pneumonia # severe hypoxemic respiratory failure. intubated 02/04/19. due to RUL/LL pna with underlying COPD. Does not meet criteria for ARDS based on unilateral infiltrates. Synchronous with ventilator with deep sedation so no role for paralysis. # pneumonia. severe. some RF for MDR given rehab stay and relative immunosuppression given chronic etoh use. Bronch on 02/04/19 with significant neutrophilia but no organisms. CT with possible early abscess. nderlying bronchoalveolar carcinoma also possible # RLL nodule with adjacent cavitation. DDx include malignancy, aspergilloma/ mycetoma. S/p brushing 02/04/19. Defer further workup to outpatient. # Encephalopathy. Due to critical illness. # COPD: On Spiriva as an outpatient. Hx long standing tobacco use, quit 7 years ago # Hx etoh dependence. recently completed rehab. no etoh in >2 weeks per report PLAN # Narrow ABs to azithro plus CTX as cultures remain negative at 48 hours. # Steroids for COPD exacerbation, which will also help attenuate severe CAP # Cont duonebs # Cont lung protective ventilation: low TV. Can start CPAP trials today # Nutrition - On TFs # Analgesia prn fentanyl # Sedation propofol # Prophylaxis: On subcu heparin and famotidine # Metabolic: High glucoses, on SSI. Sodium 133: Follow # Skin: no skin breakdown # Delirium - delirium precautions # Lung nodule: Defer further workup to outpatient setting, as it will not change acute management. Over 1 hr of critical care time spent directly with the patient managing issues as above, not including therapeutic bronchoscopy. Discussed with the patient's , respiratory, nursing, hospitalist, and the ICU multi disciplinary team. Subjective: Sedated, on the ventilator Objective: Vital Signs Temp Pulse Resp BP Pulse Ox 36.5 C 63 24 H 136/76 H 100 02/06/19 08:00 02/06/19 10:00 02/06/19 10:00 02/06/19 10:00 02/06/19 10:00 Microbiology 02/04/19 18:28 Gram Stain - Final Bronchial Alveolar Lavage - Right Upper Lobe Laboratory Results 02/06/19 04:15 02/06/19 04:15 02/05/19 02/06/19 02/07/19 05:59 05:59 05:59 Intake Total 2200 2622.3 Output Total 1117 920 500 Balance 1083 1702.3 -500 PT 13.7 SEC (12.0-15.0) 02/03/19 12:30 INR 1.09 (0.83-1.16) 02/03/19 12:30 Laboratory Tests 02/05/19 02/06/19 05:20 04:15 pO2 85 H Total CO2 22 L ABG pH 7.40 ABG O2 Saturation 97 H O2 Concentration % 50 Respiration Rate 28 Set Respiration Rate 20 Tidal Volume 480 PEEP 12 Calcium 8.0 L Total Bilirubin 0.3 AST 22 ALT 39 Albumin 2.1 L CXR: Dense right upper lobe infiltrate persists, with a smaller right lower lobe density medially. Lines and tubes in good position. Physical Exam - Physical Exam General Appearance: other (Sedated, on ventilator. Arouses weakly.) EENT: PERRL/EOMI, ET tube, other (OG tube in place) Neck: normal inspection Respiratory: decreased breath sounds, rales (On right), rhonchi (Rhonchi present bilaterally. Secretions being suctioned.), No wheezing Cardiac/Chest: regular rate, rhythm Abdomen: non-tender, soft, No normal bowel sounds (Decreased, present) Male Genitalia: other (Chase catheter in place: Good urine output) Skin: normal color, warm/dry Extremities: pedal edema Neuro/Psych: no motor/sensory deficits (Moves all extremities weakly), No cognition abnormalities (Difficult to assess) ICD10 Worksheet Patient Problems: Problems Problem Status Onset Pneumonia Acute Dyspnea Acute Hypoxia Acute
--- NOTE | 2019-02-06 11:59 | ASMTCMCOM ---
CM Note CM Note Notes: Patient intubated/sedated in the ICU; CXR shows dense RUL pneumonia. Attempts to wean off vent will begin today. PT/OT have not been able to work with patient yet. His Tricia is at bedside. Case Management will follow for d/c planning. Date Signed: 02/06/2019 11:58 AM Electronically Signed By:Kat Garcia RN
--- NOTE | 2019-02-06 13:59 | GPN ---
[f rep st] PROCEDURE NOTE DATE OF PROCEDURE: 02/06/2019 PROCEDURE PERFORMED: Therapeutic bronchoscopy. INDICATION: Severe pneumonia in a patient with respiratory failure on the ventilator, who has increa sing secretions. This procedure is being done to remove secretions and obtain deep cultures. DESCRIPTION OF PROCEDURE: The procedure was done in the patient's room in the intensive care unit. Informed consent was obtained from the patient's . Appropriate time-out was performed. The aly ent was on propofol, no additional conscious sedation was required. Fiberoptic bronchoscope was passed via an adapter in the end of the patient's endotracheal tube and i nto the distal trachea. The end of the endotracheal tube was adjusted downwards and taped in place a t 2-3 cm above the main grady. There were moderate, relatively loose secretions found in the trache a and in the lower tracheobronchial tree bilaterally. These were worse on the right side than the le ft. Secretions were removed with suction and lavage. A culture was sent. There were no complicatio ns. Vital signs and oxygen saturation on 100% FiO2 during the procedure remained normal throughout. During this procedure, the patient's NG tube was also advanced from approximately 55 cm to 65 cm. There were no complications. IMPRESSION: At least, moderate loose secretions without mucus plugging or evidence of endobronchial abnormalities in a patient with severe pneumonia on the ventilator. /[id number]/MODL
[2019-02-07] MEDS: PROPOFOL/EMULSION 100 ML IV SCH ×3 (00:22→09:21)
[2019-02-07 05:07] LABS: PLATELET COUNT 266 10^3/uL (150-400)
[2019-02-07] MEDS: FAMOTIDINE 20 MG TAB TUBE SCH (08:25)
[2019-02-07] MEDS: CHLORHEXIDINE GLUCONATE 15 ML UDL PO SCH ×2 (08:25→20:01)
[2019-02-07] MEDS: ACETAMINOPHEN 325 MG TAB PO PRN (08:26)
[2019-02-07] MEDS: THIAMINE HCL 100 MG TAB TUBE SCH (08:26)
[2019-02-07] MEDS: predniSONE 20 MG TAB TUBE SCH (08:26)
[2019-02-07] MEDS: ENOXAPARIN 40 MG/0.4 ML SYR SC SCH (08:26)
--- NOTE | 2019-02-07 15:13 | PDINTPN ---
Activated Sludge Operator Progress Note Assessment/Plan: Assessment: ASSESSMENT 78 yo M w h/o tobacco use, mild copd and etoh abuse transferred to ICU 02/03 with acute hypoxemic respiratory failure due to severe pneumonia # severe hypoxemic respiratory failure. intubated 02/04/19. due to RUL/LL pna with underlying COPD. Did not meet criteria for ARDS based on unilateral infiltrates. Extubated 02/07 with good parameters and an improving x-ray. # pneumonia. severe. some RF for MDR given rehab stay and relative immunosuppression given chronic etoh use. Bronch on 02/04 and 02/[address] without specific organism identified. CT with possible early abscess. Underlying bronchoalveolar carcinoma also possible but will not be able to assess until he totally recovers and infectious infiltrates clear. # RLL nodule with adjacent cavitation. DDx include malignancy, aspergilloma/ mycetoma. S/p brushing 02/04/19 negative to date. Defer further workup to outpatient. # Encephalopathy. Due to critical illness, resolved. # COPD: On Spiriva as an outpatient. Hx long standing tobacco use, quit 7 years ago # Hx etoh dependence. recently completed rehab. no etoh in >2 weeks per report PLAN # continue care in the intensive care unit # continue azithro plus CTX # Steroids for COPD exacerbation and severe CAP # Cont duonebs # restart pre-hospital medications as ordered # Nutrition - start regular diet # Prophylaxis: On subcu heparin and famotidine # Metabolic: High glucoses, on SSI. Sodium 135: Follow # Skin: no skin breakdown. Began to mobilize # Lung nodule: Defer further workup to outpatient setting, as it will not change acute management 1 hr of critical care time spent directly with the patient. Multiple visits, including prior to extubation, during and after extubation. Discussed with respiratory, nursing, hospitalist, pharmacy and the ICU multi disciplinary team. Subjective: Doing well post extubation. No specific complaints. In general says he does not feel very well. Denies significant shortness of breath. Has a good cough. Denies pain. Objective: Vital Signs Temp Pulse Resp BP Pulse Ox 37.7 C 89 25 H 140/68 H 92 02/07/19 07:54 02/07/19 14:00 02/07/19 14:00 02/07/19 14:00 02/07/19 14:00 Microbiology 02/06/19 13:15 Gram Stain - Final Bronchial Washing - Bilateral Lobes 02/04/19 18:28 Gram Stain - Final Bronchial Alveolar Lavage - Right Upper Lobe Laboratory Results 02/07/19 04:45 02/07/19 04:45 02/06/19 02/07/19 02/08/19 05:59 05:59 05:59 Intake Total 2622.3 2156.2 419 Output Total 920 2995 1450 Balance 1702.3 -838.8 -1031 PT 13.7 SEC (12.0-15.0) 02/03/19 12:30 INR 1.09 (0.83-1.16) 02/03/19 12:30 Laboratory Tests 02/07/19 02/07/19 04:45 05:10 pCO2 37 pO2 74 ABG pH 7.46 H O2 Concentration % 40 CPAP YES Calcium 7.8 L Magnesium 1.9 Total Bilirubin 0.3 AST 31 ALT 35 Albumin 2.3 L CXR: Infiltrates improving. Physical Exam - Physical Exam General Appearance: alert, no apparent distress EENT: PERRL/EOMI, other (Nasal cannula oxygen in place post extubation) Neck: normal inspection (No obvious JVD) Respiratory: lungs clear (Anteriorly), decreased breath sounds, rales (Few rales present in the lateral posterior bases, right greater than left. Bronchial breath sounds on the right), wheezing (Mild end expiratory wheezing present), No rhonchi (Some central congestion with cough, mild) Cardiac/Chest: regular rate, rhythm, systolic murmur, No gallop Abdomen: non-tender, soft, No normal bowel sounds (Decreased, present) Male Genitalia: other (Chase catheter in place, good urine output.) Skin: normal color, warm/dry Extremities: pedal edema (Trace) Neuro/Psych: no motor/sensory deficits, No cognition abnormalities ICD10 Worksheet Patient Problems: Problems Problem Status Onset Pneumonia Acute Dyspnea Acute Hypoxia Acute
[2019-02-07] MEDS: IPRATROPIUM/ALBUTEROL 3 ML DEYVIAL IH SCH ×2 (15:39→19:45)
--- NOTE | 2019-02-07 16:10 | ASMTCMCOM ---
CM Note CM Note Notes: Pt care discussed in rounds, extubation today. Spiritual care met with pt and he assigned his linus WATSONwmelba in chart. PT/OT evals pending. CM to follow. Plan: TBD Date Signed: 02/07/2019 04:10 PM Electronically Signed By:JOHNNA Calderon
--- NOTE | 2019-02-07 17:24 | HOSPPROG ---
Hospitalist Progress Note Assessment/Plan: 78 y/o male w/hx of COPD and etoh abuse admitted with PNA, RUL nodule. Subsequent decompensation requiring intubation and sedation. Acute hypoxemic respiratory failure- Intubated on 02/04 and extubated 02/07, etiology due to PNA with COPD and exacerbated by right mass/cavitary lesion. CT with large cavity and associated nodule which could be mycetoma vs malignancy vs other. RLL PNA: severe, bronch x 2 without specific organism identified, CT reviewed with possible juan daniel abscess, continue ctx/azithro RLL nodule with cavitary lesion- as above, BAL and path sent, further w/u as OP Etoh abuse: Recently completed a detox program a week ago no evidence of acute wd Hypovolemia hyponatremia: improved with fluids COPD: continue duonebs, steroids Encephalopathy- likely from underlying illness. Improving. Depression- celexa HTN- meds on hold, given borderline pressures, has not required pressor support so far. Diet: TF still going, taking clears VTE ppx: Heparin subq, H2 alex. Code: Full Dispo: remain inpatient SDU for resp failure, PNA Subjective: patient notes that he feels awful, he is not sure if he feels any better from when he came in Objective: Vital Signs Temp Pulse Resp BP Pulse Ox 37.3 C 82 21 H 129/53 H 96 02/07/19 16:00 02/07/19 16:00 02/07/19 16:00 02/07/19 16:00 02/07/19 16:00 Microbiology 02/04/19 18:28 Gram Stain - Final Bronchial Alveolar Lavage - Right Upper Lobe Bronchial Culture - Final 02/06/19 13:15 Gram Stain - Final Bronchial Washing - Bilateral Lobes Laboratory Results 02/07/19 04:45 02/07/19 04:45 02/06/19 02/07/19 02/08/19 05:59 05:59 05:59 Intake Total 2622.3 2156.2 419 Output Total 920 2995 1450 Balance 1702.3 -838.8 -1031 PT 13.7 SEC (12.0-15.0) 02/03/19 12:30 INR 1.09 (0.83-1.16) 02/03/19 12:30 chronically ill appearing scleral injection op clear dry mm reg no mrg cta dec bs at bases, rhonchi right base soft nt nd no cce warm dry well perfused oriented appropriate - Time Spent With Patient Time Spent with Patient: greater than 35 minutes Time Spent with Patient: Greater than 35 minutes spent on this patients care, greater than 50% of time spent counseling, educating, and coordinating care regarding the above mentioned plan. ICD10 Worksheet Patient Problems: Problems Problem Status Onset Pneumonia Acute Dyspnea Acute Hypoxia Acute
[2019-02-07] MEDS: AZITHROMYCIN IV 500 MG in NS 250 ML IV SCH (17:47)
[2019-02-07] MEDS: NICOTINE 14 MG/24 HR PATCH TD SCH (19:23)
[2019-02-07] MEDS: NICOTINE POLACRILEX 2 MG GUM B PRN (20:01)
[2019-02-07] MEDS: FAMOTIDINE 20 MG TAB PO SCH (20:01)
[2019-02-07] MEDS: traZODone 50 MG TAB PO SCH (20:01)
[2019-02-08] MEDS: ACETAMINOPHEN 325 MG TAB PO PRN ×2 (01:31→12:25)
[2019-02-08] MEDS: IPRATROPIUM/ALBUTEROL 3 ML DEYVIAL IH SCH ×4 (05:13→20:15)
[2019-02-08] MEDS: TIOTROPIUM INHALER 18 MCG/DOSE 5 DOSE/MDI IH SCH (05:16)
--- NOTE | 2019-02-08 08:02 | HOSPPROG ---
Hospitalist Progress Note Assessment/Plan: 78 y/o male w/hx of COPD and etoh abuse admitted with PNA. Subsequent decompensation requiring intubation. Now extubated. #Acute hypoxemic respiratory failure: Extubated 02/07, now on 3L. Add mucolytic. Pulm hygiene. Wean as able. #RLL PNA: Severe, bronch x 2 without specific organism identified, CT reviewed with possible early abscess. Continue ctx/azithro. #RLL nodule with cavitary lesion: BAL and path sent/pending, further w/u as OP ( mycetoma vs malignancy vs other). #Etoh abuse: Recently completed a detox program a week ago. No evidence of acute wd. #Hypovolemia hyponatremia: Improved with fluids. #COPD: Continue scheduled duonebs, steroids. #Encephalopathy: Resolved. Due to acute illness. #Depression: Wellbutrin #HTN: Resumed home amlodipine. #Loose stools: C diff neg. Suspect abx-associated diarrhea. Loperamide prn Diet: now eating, advance to regular as able VTE ppx: Heparin subq, H2 alex. Code: Full Dispo: Remain inpatient. Monitor in SDU but likely able to go to floor later this afternoon if remains stable. Subjective: Reviewed cxr from this AM, slightly improved (interpreted by me). Feeling better this morning but very distressed by stool incontinence. Still coughing some mucous up. Objective: Vital Signs Temp Pulse Resp BP Pulse Ox 37.0 C 85 17 143/90 H 97 02/08/19 03:37 02/08/19 05:17 02/08/19 05:17 02/08/19 04:00 02/08/19 05:17 Microbiology 02/04/19 18:28 Gram Stain - Final Bronchial Alveolar Lavage - Right Upper Lobe Bronchial Culture - Final 02/06/19 13:15 Gram Stain - Final Bronchial Washing - Bilateral Lobes Laboratory Results 02/07/19 04:45 02/07/19 04:45 02/07/19 02/08/19 02/09/19 05:59 05:59 05:59 Intake Total 2156.2 1034 Output Total 2995 2075 100 Balance -838.8 -1041 -100 PT 13.7 SEC (12.0-15.0) 02/03/19 12:30 INR 1.09 (0.83-1.16) 02/03/19 12:30 - Physical Exam Constitutional: no apparent distress, appears nourished, other (tired) Eyes: PERRL, anicteric sclera Ears, Nose, Mouth, Throat: moist mucous membranes Cardiovascular: regular rate and rhythym, no murmur, rub, or gallop, No edema Respiratory: no respiratory distress, reduced air movement (right bases), rhonchi, No expiratory wheeze Gastrointestinal: normoactive bowel sounds, soft, non-tender abdomen, no palpable masses Genitourinary: no bladder fullness, no bladder tenderness, no renal bruits Skin: no rashes or abrasions, no fluctuance, no induration Musculoskeletal: full muscle strength, no muscle tenderness, normal joint ROM Neurologic: AAOx3, sensation intact bilaterally Psychiatric: interacting appropriately, not anxious, not encephalopathic, thought process linear ICD10 Worksheet Patient Problems: Problems Problem Status Onset Dyspnea Acute Hypoxia Acute Pneumonia Acute
[2019-02-08] MEDS: NICOTINE 14 MG/24 HR PATCH TD SCH (08:38)
[2019-02-08] MEDS: THIAMINE HCL 100 MG TAB PO SCH (08:38)
[2019-02-08] MEDS: predniSONE 10 MG TAB PO SCH (08:38)
[2019-02-08] MEDS: ASPIRIN 81 MG CHEWABLE TAB PO SCH (08:38)
[2019-02-08] MEDS: FAMOTIDINE 20 MG TAB PO SCH ×2 (08:38→20:19)
[2019-02-08] MEDS: ENOXAPARIN 40 MG/0.4 ML SYR SC SCH (08:38)
[2019-02-08] MEDS: buPROPion XL 150 MG TAB PO SCH (08:38)
[2019-02-08] MEDS: CHLORHEXIDINE GLUCONATE 15 ML UDL PO SCH (08:39)
[2019-02-08] MEDS ORDERED: predniSONE 20 MG TAB PO SCH (09:00)
[2019-02-08] MEDS: LOPERAMIDE HCL 2 MG CAP PO PRN ×3 (10:04→18:14)
[2019-02-08] MEDS: guaiFENesin 600 MG TAB.ER PO SCH ×2 (10:04→20:19)
[2019-02-08] MEDS: AZITHROMYCIN IV 500 MG in NS 250 ML IV SCH (10:12)
[2019-02-08] MEDS ORDERED: ZOLPIDEM TARTRATE 5 MG TAB PO PRN (10:31)
--- NOTE | 2019-02-08 10:53 | PDINTPN ---
Programmer Analyst Health It Progress Note Assessment/Plan: Assessment: ASSESSMENT 78 yo M w h/o tobacco use, mild copd and etoh abuse transferred to ICU 02/03 with acute hypoxemic respiratory failure due to severe pneumonia # severe hypoxemic respiratory failure. intubated 02/04/19. due to RUL/LL pna with underlying COPD. Did not meet criteria for ARDS based on unilateral infiltrates. Extubated 02/07 with good parameters and an improving x-ray. Now down to 2 L nasal cannula. # pneumonia. severe. Some RFs for MDR given rehab stay and relative immunosuppression given chronic etoh use, but all cultures have remained negative Bronch on 02/04 and 02/[address] without [address] organism identified. CT with possible early abscess. Underlying bronchoalveolar carcinoma also possible but will not be able to assess until he totally recovers and infectious infiltrates clear. # RLL nodule with adjacent cavitation. DDx include malignancy, aspergilloma/ mycetoma. S/p brushing 02/04/19 negative to date. Cytologies pending. Defer further workup to outpatient. # Encephalopathy. Due to critical illness, resolved. # COPD: On Spiriva as an outpatient. Hx long standing tobacco use, quit 7 years ago # Hx etoh dependence. recently completed rehab. no etoh in >2 weeks per report. No signs or symptoms alcohol withdrawal. PLAN # continue azithro plus CTX # continue prednisone taper # Cont duonebs # Cont pre-hospital medications as ordered # Nutrition - regular diet # Prophylaxis: On subcu heparin and famotidine # Metabolic: Sodium 135: Follow intermittently # Skin: no skin breakdown. Mobilize # Lung nodule: Defer further workup to outpatient setting, as it will not change acute management. Consider follow-up CT scan prior to discharge. # can transfer to a medical-surgical bed today. 35 min of critical care time spent directly with the patient. Discussed with nursing, respiratory, and the ICU multi disciplinary team. Subjective: Slept poorly last night. Overall feels somewhat better, not great. Shortness of breath persists. Intermittent cough, not much phlegm. Objective: Vital Signs Temp Pulse Resp BP Pulse Ox 36.8 C 86 17 131/60 H 95 02/08/19 08:00 02/08/19 08:00 02/08/19 08:00 02/08/19 08:00 02/08/19 08:00 Microbiology 02/04/19 18:28 Gram Stain - Final Bronchial Alveolar Lavage - Right Upper Lobe Bronchial Culture - Final 02/06/19 13:15 Gram Stain - Final Bronchial Washing - Bilateral Lobes Laboratory Results 02/07/19 04:45 02/07/19 04:45 02/07/19 02/08/19 02/09/19 05:59 05:59 05:59 Intake Total 2156.2 1034 Output Total 2995 2075 100 Balance -838.8 -1041 -100 PT 13.7 SEC (12.0-15.0) 02/03/19 12:30 INR 1.09 (0.83-1.16) 02/03/19 12:30 Recent sputum cultures: Remain negative. Chest x-ray: Persistent right upper lobe and medial right lower lobe infiltrate. Small right effusion appears to be developing as well. Physical Exam - Physical Exam General Appearance: alert, no apparent distress EENT: PERRL/EOMI, other (Nasal cannula in place at 2 L) Neck: normal inspection Respiratory: decreased breath sounds, rales (Rales present on the right side: Anterior as well as posterior base), wheezing (Minimal), prolonged expiration, No respiratory distress, No rhonchi (No kandi rhonchi, central congestion with voluntary cough) Cardiac/Chest: regular rate, rhythm, No gallop Abdomen: normal bowel sounds, non-tender, soft, other (Loose stools, on Imodium , C diff negative.) Male Genitalia: other (Chase out) Skin: normal color, warm/dry Extremities: pedal edema (Trace +) Neuro/Psych: no motor/sensory deficits, No cognition abnormalities ICD10 Worksheet Patient Problems: Problems Problem Status Onset Pneumonia Acute Dyspnea Acute Hypoxia Acute
[2019-02-08] MEDS: NICOTINE POLACRILEX 2 MG GUM B PRN ×2 (16:20→19:30)
[2019-02-08] MEDS: traZODone 50 MG TAB PO SCH ×2 (20:19→22:12)
[2019-02-08] MEDS ORDERED: MELATONIN 3 MG TAB PO SCH (21:00)
[2019-02-09] MEDS: NICOTINE POLACRILEX 2 MG GUM B PRN ×3 (05:00→11:56)
[2019-02-09] MEDS: IPRATROPIUM/ALBUTEROL 3 ML DEYVIAL IH SCH ×2 (05:50→10:47)
[2019-02-09] MEDS: TIOTROPIUM INHALER 18 MCG/DOSE 5 DOSE/MDI IH SCH (05:54)
[2019-02-09] MEDS: ACETAMINOPHEN 325 MG TAB PO PRN (06:29)
[2019-02-09 07:54] VITALS: BP 142/47
--- NOTE | 2019-02-09 08:32 | HOSPPROG ---
Hospitalist Progress Note Assessment/Plan: 78 y/o male w/hx of COPD and etoh abuse admitted with PNA. Subsequent decompensation requiring intubation. Now extubated. #Acute hypoxemic respiratory failure: Extubated 02/07, now on 1-2L. Cont mucolytic. Pulm hygiene. Wean as able. #RLL PNA: Severe, bronch x 2 without specific organism identified, CT reviewed with possible early abscess. Switch to PO augmentin. #RLL nodule with cavitary lesion: Cytology negative, further w/u as OP ( mycetoma vs malignancy vs other). #Etoh abuse: Recently completed a detox program a week ago. No evidence of acute wd. #Hypovolemia hyponatremia: Improved with fluids. #COPD: Continue scheduled duonebs, steroids. #Encephalopathy: Resolved. Due to acute illness. #Depression: Wellbutrin #HTN: Resumed home amlodipine. #Loose stools: C diff neg. Suspect abx-associated diarrhea. Loperamide prn Diet: now eating, advance to regular as able VTE ppx: Heparin subq, H2 alex. Code: Full Dispo: Discharge today Subjective: Feeling much better, breathing ok. No fevers. Wanting to go home. Objective: Vital Signs Temp Pulse Resp BP Pulse Ox 36.9 C 88 20 142/47 H 92 02/09/19 07:51 02/09/19 07:51 02/09/19 07:51 02/09/19 07:51 02/09/19 07:51 Microbiology 02/06/19 13:15 Gram Stain - Final Bronchial Washing - Bilateral Lobes Laboratory Results 02/07/19 04:45 02/07/19 04:45 02/08/19 02/09/19 02/10/19 05:59 05:59 05:59 Intake Total 1034 2450 Output Total 2075 1390 200 Balance -1041 1060 -200 PT 13.7 SEC (12.0-15.0) 02/03/19 12:30 INR 1.09 (0.83-1.16) 02/03/19 12:30 - Physical Exam Constitutional: no apparent distress, appears nourished, not in pain Eyes: PERRL, anicteric sclera, EOMI Ears, Nose, Mouth, Throat: moist mucous membranes, hearing normal, ears appear normal, no oral mucosal ulcers Cardiovascular: regular rate and rhythym, no murmur, rub, or gallop, No edema Respiratory: no respiratory distress, no rales or rhonchi, clear to auscultation Gastrointestinal: normoactive bowel sounds, soft, non-tender abdomen, no palpable masses Genitourinary: no bladder fullness, no bladder tenderness, no renal bruits Skin: no rashes or abrasions, no fluctuance, no induration Musculoskeletal: full muscle strength, no muscle tenderness, normal joint ROM Neurologic: AAOx3 Psychiatric: interacting appropriately ICD10 Worksheet Patient Problems: Problems Problem Status Onset Pneumonia Acute Dyspnea Acute Hypoxia Acute
--- NOTE | 2019-02-09 08:58 | CPEKG ---
Test Reason : OPEN Blood Pressure : / mmHG Vent. Rate : 064 BPM Atrial Rate : 065 BPM P-R Int : 202 ms QRS Dur : 080 ms QT Int : 405 ms P-R-T Axes : 065 052 063 degrees QTc Int : 418 ms Sinus rhythm Ventricular trigeminy Low voltage, extremity leads Probable anteroseptal infarct, old NH interval has shortened Confirmed by Matthew Basurto ([id number]) on 02/09/2019 8:58:35 AM Referred By: Sanya Denise Confirmed By:Matthew Basurto
[2019-02-09] MEDS: AZITHROMYCIN IV 500 MG in NS 250 ML IV SCH (09:00)
[2019-02-09] MEDS: predniSONE 10 MG TAB PO SCH (09:11)
[2019-02-09] MEDS: guaiFENesin 600 MG TAB.ER PO SCH (09:12)
[2019-02-09] MEDS: ASPIRIN 81 MG CHEWABLE TAB PO SCH (09:12)
[2019-02-09] MEDS: FAMOTIDINE 20 MG TAB PO SCH (09:12)
[2019-02-09] MEDS: THIAMINE HCL 100 MG TAB PO SCH (09:12)
[2019-02-09] MEDS: buPROPion XL 150 MG TAB PO SCH (09:12)
[2019-02-09] MEDS: NICOTINE 14 MG/24 HR PATCH TD SCH (09:12)
[2019-02-09] MEDS: ENOXAPARIN 40 MG/0.4 ML SYR SC SCH (09:12)
[2019-02-09] MEDS ORDERED: IPRATROPIUM/ALBUTEROL 3 ML DEYVIAL IH PRN (10:51)
[2019-02-09] MEDS ORDERED: AMOXICILLIN/CLAVULANATE POT 875/125 MG TAB PO SCH (11:00)
--- NOTE | 2019-02-09 11:50 | PDHOMEO2F ---
Home Oxygen Face to Face Home Orders: I certify that a physician or a nurse practitioner or physician's assistant store leader has had a [id number] encounter with this patient on the date of this order due to the diagnosis listed, which relates to the primary reason the patient requires home oxygen. Alternative treatments have been tried, or considered, and deemed ineffective. It is anticipated that supplemental oxygen will result in improvement with treatment. Home oxygen qualifying diagnosis: respiratory failure with hypoxia SpO2 on room air (%): 87 Frequency of home oxygen needed: continuous Home oxygen liters per minute: 2 Home oxygen delivery device: nasal cannula Concentrator: Yes E-tanks for mobility and back up: Yes If ordering portable O2, is the patient mobile in the home?: Yes I certify that, based on these findings, the home oxygen is medically necessary for this patient for the following length of time. Length of time home oxygen needed: 3 months
[2019-02-09] MEDS ORDERED: ALBUTEROL 60 PUFFS/8 GM MDI IH SCH (12:00)
--- NOTE | 2019-02-09 12:05 | PDINTPN ---
Substation Electrician Supervisor Progress Note Assessment/Plan: Assessment: ASSESSMENT 78 yo M w h/o tobacco use, mild copd and etoh abuse transferred to ICU 02/03 with acute hypoxemic respiratory failure due to severe pneumonia # severe hypoxemic respiratory failure. intubated 02/04/19. due to RUL/LL pna with underlying COPD. Did not meet criteria for ARDS based on unilateral infiltrates. Extubated 02/07 with good parameters and an improving x-ray. Now down to 2 L nasal cannula. # pneumonia. severe. Some RFs for MDR given rehab stay and relative immunosuppression given chronic etoh use, but all cultures have remained negative Bronch on 02/04 and 02/[address] without [address] organism identified. CT with possible early abscess. Underlying bronchoalveolar carcinoma also possible but will not be able to assess until he totally recovers and infectious infiltrates clear. # RLL nodule with adjacent cavitation. DDx include malignancy, aspergilloma/ mycetoma. S/p brushing 02/04/19 negative to date. Cytologies pending. Defer further workup to outpatient. # Encephalopathy. Due to critical illness, resolved. # COPD: On Spiriva as an outpatient. Hx long standing tobacco use, quit 7 years ago # Hx etoh dependence. recently completed rehab. no etoh in >2 weeks per report. No signs or symptoms alcohol withdrawal. PLAN: Home today on Augmentin 875 twice daily to complete a 10 day course of antibiotics. He will use Spiriva and albuterol by metered-dose inhaler. Oxygen will be required. I have encouraged him to get a personal pulse oximeter. As he improves if saturations are in the upper 80s or above he would not need oxygen. Not to return to work this week, possibly next week? Follow- up with me in 2-3 weeks with a new chest x-ray at that time. We will arrange a follow-up CT scan of the chest for his small cavitary lesion at that time, probably a 3 month follow-up CT scan. Pulmonary function tests will be needed as an outpatient. All the above was discussed with the patient. Specific recommendations given. Subjective: Feeling better, wants to go home, less short of breath. Objective: Vital Signs Temp Pulse Resp BP Pulse Ox 36.9 C 86 15 142/47 H 92 02/09/19 07:51 02/09/19 10:49 02/09/19 10:49 02/09/19 07:51 02/09/19 10:49 Microbiology 02/06/19 13:15 Gram Stain - Final Bronchial Washing - Bilateral Lobes Laboratory Results 02/07/19 04:45 02/07/19 04:45 02/08/19 02/09/19 02/10/19 05:59 05:59 05:59 Intake Total 1034 2450 850 Output Total 2075 1390 300 Balance -1041 1060 550 PT 13.7 SEC (12.0-15.0) 02/03/19 12:30 INR 1.09 (0.83-1.16) 02/03/19 12:30 CXR: Continued improvement in right upper lobe pneumonia. Infiltrates elsewhere have resolved. Right upper lobe density persists Physical Exam - Physical Exam General Appearance: alert, no apparent distress EENT: other (Nasal cannula in place at 2 L, 87% on room air) Neck: normal inspection (No JVD) Respiratory: decreased breath sounds, rales (Present on the right side, upper lobe anteriorly, few lower lobe) Cardiac/Chest: regular rate, rhythm, systolic murmur, No gallop Abdomen: normal bowel sounds, non-tender, soft Skin: normal color, warm/dry Extremities: No pedal edema Neuro/Psych: no motor/sensory deficits, No cognition abnormalities ICD10 Worksheet Patient Problems: Problems Problem Status Onset Pneumonia Acute Dyspnea Acute Hypoxia Acute
--- NOTE | 2019-02-09 12:11 | PDDCSUM ---
Discharge Summary Discharge Summary: Date of Admission: 02/03/2019 Date of Discharge: 02/09/2019 Consultants: polygraph technician Procedures: endotracheal intubation, bronchoscopy x2 Studies: CT chest Discharge Diagnoses: 1. Acute hypoxemic respiratory failure 2. Severe right upper and lower community acquired pneumonia 3. Severe sepsis, POA 4. Acute metabolic encephalopathy, resolved 5. RLL nodule with cavitation 6. EtOH abuse, recently completed detox program with no e/o withdrawal while here 7. COPD, no acute exacerbation 8. LUTS with urinary urgency 9. HTN 10. Depression Brief Hospital Course: 78 y/o male w/hx of COPD and etoh abuse presented with malaise found to have severe right upper and lower pneumonia. He subsequently developed respiratory failure requiring mechanical ventilation and ICU care. He underwent 2 bronchoscopies without identification of culprit organism. He was treated for community acquired pneumonia with significant improvement. Extubated 02/07. Discharge on 1-2L of supplemental oxygen to complete a 10 day course of antibiotics. Of note, CT of his chest did reveal a RLL nodule with cavitation. Brushing from bronchoscopy and cytology were negative. He will follow up with pulmonology for repeat CXR and CT as an outpatient. Medications: Please refer to EMR for complete list. I sent prescription to his pharmacy for the following 1. Augmentin 875mg BID #12 with 0 refills 2. Prednisone 20mg daily x 2 days, then 10mg daily x 2 days 3. Albuterol inhaler PRN Follow Up Plan: 1. To see PCP next week to address ongoing oxygen need and address LUTS 2. Follow up in pulm clinic with CXR in 2-[address] in 3 months Physical Exam: Vitals reviewed, afebrile. Alert and oriented, rrr, lungs clear, abdomen soft and nt, no leg edema.
--- NOTE | 2019-02-09 12:13 | PDIAF ---
- Diagnosis Code Status: Full Code - Medication Management Discharge Medications: electronically signed and located in the Home Medication List. PICC Care - Routine: N/A - Orders Services needed: Home Care, Physical Therapy, Occupational Therapy Home Care Face to Face: I certify that this patient was under my care and that I had the required [id number] encounter meeting the encounter requirements on the discharge day. My findings support the fact that the patient is homebound as defined in Home Care Face to Face Continued: CMS Chapter 7 Medicare Benefits Manual 30.1.1 , The condition of the patient is such that there exists a normal inability to leave home and consequently, leaving home would require a considerable and taxing effort. Isolation Type: None Diet Recommendation: no restrictions on diet Chase: Not applicable Additional Instructions: I sent prescriptions for your antibiotic (augmentin - take for 6 more days), prednisone (take for 4 more days), and an albuterol inhaler to your pharmacy. We are setting you up with home oxygen and home health physical and occupational therapies. - Follow Up Care Current Providers and Referrals: Falguni Rogers MD [Primary Care Provider] - As per Instructions
--- NOTE | 2019-02-09 14:39 | PDHOMEO2F ---
Home Oxygen Face to Face Home Orders: I certify that a physician or a nurse practitioner or physician's day care assistant has had a psfo-ti-zxox encounter with this patient on the date of this order due to the diagnosis listed, which relates to the primary reason the patient requires home oxygen. Alternative treatments have been tried, or considered, and deemed ineffective. It is anticipated that supplemental oxygen will result in improvement with treatment. Home oxygen qualifying diagnosis: respiratory failure with hypoxia SpO2 on room air (%): 87 Frequency of home oxygen needed: continuous Home oxygen liters per minute: 2 Home oxygen delivery device: nasal cannula Concentrator: Yes E-tanks for mobility and back up: Yes If ordering portable O2, is the patient mobile in the home?: Yes I certify that, based on these findings, the home oxygen is medically necessary for this patient for the following length of time. Length of time home oxygen needed: 99 years
--- NOTE | 2019-02-09 14:54 | ASMTDCNOTE ---
Case Management Discharge Discharge Order Complete? Answers: Yes Patient to Obtain Answers: Other Notes: Taxi Medications Transportation Arranged Answers: Taxi - Voucher Case Management Transport Answers: Yes Form Complete Faxed Final Orders Answers: Yes Agency/Facility Transfer Answers: Yes Report Printed & Faxed to Receiving Agency Discharge Comments Notes: Spoke with pt about discharge plans home with Home health care and Home O2 (RT aware). [facility] able to accept and will call and follow up with him this weekend. Pt is aware and appreciative of referral. Pt's was unable to pick pt up at discharge, CM provide voucher transport taxi. Pt said he had no concerns getting meds. No other CM needs identified at this time. Date Signed: 02/09/2019 02:53 PM Electronically Signed By:JOHNNA Calderon
--- NOTE | 2019-02-09 14:58 | ASDISCHSUM ---
Discharge Information Plan Status:Home with Home Health Medically Cleared to Leave: Discharge Date: D/C Disposition: [facility] D/C Disposition:[facility] Projected Discharge Date:02/09/2019 11:00 AM Transportation at D/C: Discharge Delay Reason: Follow-Up Date:02/09/2019 11:00 AM Discharge Slot: Final Diagnosis: Placement Information Referral Type:*Home Health Care Services Referral ID:[id number] Provider Name:[facility] Address 1:[address] Address 2: City:[place] Selection Factors: State:[place] Patient Contact Information Contact Name:CARLOS Relationship: Address:[address] City:[place] Alternate Phone: State/Zip Code:[place] [address] Email: Financial Information Financial Class:My [facility] Primary Plan Desc:JEEVAN PPO AND EPO Primary Plan Number:[id number] Secondary Plan Desc:MEDICARE INPATIENT Secondary Plan Number:[id number] Assessment Information LACE LACE Length of stay for Answers: 4-6 days current admission Acuity / Level of Answers: Yes Care: Did the patient have an inpatient admission? Comorbidities - select Answers: Chronic pulmonary disease all that apply # of Emergency department Answers: 1-2 visits in the last 6 months Social determinants Answers: History of substance abuse (ETOH, street drugs, prescription drugs, etc.) Score: 13 Date Signed: 02/09/2019 02:57 PM Electronically Signed By:JOHNNA Calderon [facility] CM Progress Note CM Note CM Note Notes: Patient admitted w lightheadedness, vomiting, fatigue. Suspicion for aspiration PNA. He is being treated accordingly. He has a hx of COPD and EtOH abuse - per H&P, he just [facility] a [facility]. He lives with his . PT/OT have been ordered. Discharge needs TBD. Case Management will follow. Date Signed: 02/04/2019 12:05 PM Electronically Signed By:Kat Garcia RN [facility] Progress Note CM Note CM Note Notes: Patient intubated/sedated in the ICU; CXR shows dense RUL pneumonia. Attempts to wean off vent will begin today. PT/OT have not been able to work with patient yet. His Tricia is at bedside. Case Management will follow for d/c planning. Date Signed: 02/06/2019 11:58 AM Electronically Signed By:Kat Garcia RN [facility] Progress Note CM Note CM Note Notes: Pt care discussed in rounds, extubation today. Spiritual care met with pt and he assigned his rosa isela WATSON in chart. PT/OT evals pending. CM to follow. Plan: TBD Date Signed: 02/07/2019 04:10 PM Electronically Signed By:JOHNNA Calderon Case Management Discharge Plan Note Case Management Discharge Discharge Order Complete? Answers: Yes Patient to Obtain Answers: Other Notes: Taxi Medications Transportation Arranged Answers: Taxi - Voucher Case Management Transport Answers: Yes Form Complete Faxed Final Orders Answers: Yes Agency/Facility Transfer Answers: Yes Report Printed & Faxed to Receiving Agency Discharge Comments Notes: Spoke with pt about discharge plans home with Home health care and Home O2 (RT aware). [facility] able to accept and will call and follow up with him this weekend. Pt is aware and appreciative of referral. Pt's was unable to pick pt up at discharge, CM provide voucher transport taxi. Pt said he had no concerns getting meds. No other CM needs identified at this time. Date Signed: 02/09/2019 02:53 PM Electronically Signed By:JOHNNA Calderon Intervention Information Intervention Type:*IM-Signed Date of Service:02/09/2019 02:01 PM Patient Type:Inpatient Staff Member:Josefina Singh Hours: Discipline: Severity: Comment:
[2019-02-10] MEDS ORDERED: predniSONE 20 MG TAB PO SCH (09:00)
[2019-02-12] MEDS ORDERED: predniSONE 10 MG TAB PO SCH (09:00)
== END 2019-02-09 14:40 | disposition home health service (06) | DRG 871 ==
LOC: INTOOBSV 13:26 → F2W 15:05 → F2N 02-04 10:28 → OBSVTOIN 02-04 16:53 → F2N 02-07 16:49
PROVIDERS: ADMIT Internal Medicine; ATTEND Internal Medicine
DX: A41.9 Sepsis, unspecified organism (principal); J18.8 Other pneumonia, unspecified organism; J96.01 Acute respiratory failure with hypoxia; G93.41 Metabolic encephalopathy; R65.20 Severe sepsis without septic shock; F10.21 Alcohol dependence, in remission; J44.9 Chronic obstructive pulmonary disease, unspecified; R39.15 Urgency of urination; I10 Essential (primary) hypertension; F32.9 Major depressive disorder, single episode, unspecified; Z87.891 Personal history of nicotine dependence; Z96.659 Presence of unspecified artificial knee joint
CPT/HCPCS: 84484-ER; 87449-90; 96365; 97116-GP; 97161-GP; 97165-GO; 97535-GO; G0378; G0480; J0171; J0295; J0456; J0696; J1644; J1650; J1956; J2060; J2250; J2370; J2543; J2704; J3010; J3370; J3411; J7512; J7613

== ENCOUNTER 2019-02-21 08:02 | Observation (INO) | payer OTHER ==
[2019-02-21] MEDS ORDERED: NS 1,000 ML IV ONE (08:05)
--- NOTE | 2019-02-21 08:22 | EDPHY ---
HPI/HX/ROS/PE/MDM Narrative: CHIEF COMPLAINT: Weakness, near-syncope HPI: This patient is a pleasant 78 year old male with history of COPD seem to be getting worse, weaker and weaker " ass tired". He was recently admitted for right-sided pneumonia and respiratory failure, requiring intubation and mechanical ventilation, discharged 02/09/19. Today, he denies any coughing. He does feel short of breath, but not more than usual given his history of COPD. He presents today mainly because he is so fatigued. He felt near-syncopal at work today, lightheaded. 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 He endorses recent lack of appetite. He endorses some diarrhea associated with his antibiotic use. He notes this has been somewhat dark or tarry in color. He denies any fever. No chest pain, nausea, vomiting, dysuria, or other associated symptoms. REVIEW OF SYSTEMS: A comprehensive 10 system review of systems is otherwise negative aside from elements mentioned in the history of present illness and medical decision making. PMH: COPD. History of alcoholism, recent treatment at [facility]. SOCIAL HISTORY: Employed. . Lives in [place]. PHYSICAL EXAM: General:Patient is alert, in no acute distress. ENT:Eyes are normal to inspection. ENT inspection normal. Neck: Normal inspection. Full range of motion. Respiratory:No respiratory distress. Right-sided expiratory wheezes. Cardiovascular: Regular rate and rhythm. Strong peripheral pulses. Normal cap refill. Abdomen:The abdomen is nontender to palpation. There are no peritoneal signs. There are normal bowel sounds. Back: Normal to inspection. No tenderness to palpation. Skin: Normal color. No rash. Warm and dry. Extremities: Normal appearance. Full range of motion. Neuro: Oriented x3. Normal motor function. Normal sensory function. ED Course: 78 y/o male with recent admission for pneumonia presents with fatigue and lightheadedness. Right expiratory wheezes noted on exam. Plan for EKG, chest x- ray, labs including CBC, chemistries, POC troponin, LFTs, UA. The patient additionally reports loose dark tarry stools. Plan for additional labs including co-ag panel, stool occult blood. He is afebrile, vitals within normal limits, oxygen saturation is 96% on room air. Reviewed laboratory studies. The patient is anemic, H&H are 11.4 and 33.5 respectively. However this is chronic for him, and his H&H are actually higher than during his admission two weeks ago. POC troponin is negative. Labs are otherwise largely unremarkable. Co-ag panel within normal limits. Patient has not yet been able to provide a urine or stool sample. 09:[address] Wellington, radiologist. Chest x-ray shows resolving right upper lobe pneumonia. 10:03 Reassessed patient. He completed his course of antibiotics (Augmentin) about one week ago. Plan to consult with the on-call qa lead. 10:[address] Pacheco, centrifuge separator operator. He recommends an additional 10 day course of Augmentin and PO steroids. Reassessed. Discussed imaging and laboratory results. Discussed admission vs. outpatient followup with antibiotics and steroid course. The patient is concerned regarding his severe weakness and near-syncope and prefers to be admitted. Plan to consult with hospitalist service. 10:38 Spoke with hospitalist service. Dr. Brito accepts admission for pneumonia. - Data Points Imaging Results: Imaging Impressions Chest X-Ray 02/21/19 08:05 Impression: 1. Improving right upper lobe consolidation with stable patchy basilar opacities. 2. Limited visualization of known right lower lobe nodule, which could represent malignancy. Findings discussed with Gordon Deng MD on 02/21/2019 at 9:40 a.m. Imaging: Discussed imaging studies w/ housecalls nurse Radiologist, I viewed and interpreted images myself Laboratory Results: Laboratory Results 02/21/19 08:30 02/21/19 08:30 02/21/19 02/21/19 02/21/19 08:38 08:30 08:30 WBC RBC Hgb Hct MCV MCH MCHC RDW Plt Count MPV Neut % (Auto) Lymph % (Auto) Preston % (Auto) Eos % (Auto) Baso % (Auto) Nucleat RBC Rel Count Absolute Neuts (auto) Absolute Lymphs (auto) Absolute Monos (auto) Absolute Eos (auto) Absolute Basos (auto) Absolute Nucleated RBC Immature Gran % Immature Gran # PT 12.4 SEC SEC (12.0-15.0) INR 0.96 (0.83-1.16) Sodium 137 mEq/L mEq/L (135-145) Potassium 4.2 mEq/L mEq/L (3.5-5.2) Chloride 104 mEq/L mEq/L (97-110) Carbon Dioxide 24 mEq/l mEq/l (22-31) Anion Gap 9 mEq/L mEq/L (6-14) BUN 12 mg/dL mg/dL (7-23) Creatinine 1.1 mg/dL mg/dL (0.7-1.3) Estimated GFR > 60 Glucose 107 mg/dL H mg/dL (70-100) Calcium 9.0 mg/dL mg/dL (8.5-10.4) Total Bilirubin 0.4 mg/dL mg/dL (0.1-1.4) Conjugated Bilirubin 0.4 mg/dL mg/dL (0.0-0.5) Unconjugated Bilirubin 0.0 mg/dL mg/dL (0.0-1.1) AST 23 IU/L IU/L (17-59) ALT 47 IU/L IU/L (21-72) Alkaline Phosphatase 81 IU/L IU/L (38-126) POC Troponin I 0.00 ng/mL ng/mL (0.00-0.08) Total Protein 5.9 g/dL L g/dL (6.3-8.2) Albumin 3.4 g/dL L g/dL (3.5-5.0) 02/21/19 08:30 WBC 6.74 10^3/uL 10^3/uL (3.80-9.50) RBC 3.38 10^6/uL L 10^6/uL (4.40-6.38) Hgb 11.4 g/dL L g/dL (13.7-17.5) Hct 33.5 % L % (40.0-51.0) MCV 99.1 fL fL (81.5-99.8) MCH 33.7 pg pg (27.9-34.1) MCHC 34.0 g/dL g/dL (32.4-36.7) RDW 11.9 % % (11.5-15.2) Plt Count 327 10^3/uL 10^3/uL (150-400) MPV 9.1 fL fL (8.7-11.7) Neut % (Auto) 75.7 % H % (39.3-74.2) Lymph % (Auto) 15.6 % % (15.0-45.0) Preston % (Auto) 6.5 % % (4.5-13.0) Eos % (Auto) 0.6 % % (0.6-7.6) Baso % (Auto) 1.2 % % (0.3-1.7) Nucleat RBC Rel Count 0.0 % % (0.0-0.2) Absolute Neuts (auto) 5.10 10^3/uL 10^3/uL (1.70-6.50) Absolute Lymphs (auto) 1.05 10^3/uL 10^3/uL (1.00-3.00) Absolute Monos (auto) 0.44 10^3/uL 10^3/uL (0.30-0.80) Absolute Eos (auto) 0.04 10^3/uL 10^3/uL (0.03-0.40) Absolute Basos (auto) 0.08 10^3/uL 10^3/uL (0.02-0.10) Absolute Nucleated RBC 0.00 10^3/uL 10^3/uL (0-0.01) Immature Gran % 0.4 % % (0.0-1.1) Immature Gran # 0.03 10^3/uL 10^3/uL (0.00-0.10) PT INR Sodium Potassium Chloride Carbon Dioxide Anion Gap BUN Creatinine Estimated GFR Glucose Calcium Total Bilirubin Conjugated Bilirubin Unconjugated Bilirubin AST ALT Alkaline Phosphatase POC Troponin I Total Protein Albumin Medications Given: Discontinued Medications Sodium Chloride (Ns) 1,000 mls @ 0 mls/hr IV EDNOW ONE; Wide Open PRN Reason: Protocol Stop: 02/21/19 08:06 Last Admin: 02/21/19 08:33 Dose: 1,000 mls Ceftriaxone Sodium/Dextrose (Rocephin 1 Gm (Premix)) 50 mls @ 100 mls/hr IV EDNOW ONE PRN Reason: Protocol Stop: 02/21/19 10:57 Last Admin: 02/21/19 10:35 Dose: 50 mls Point of Care Test Results: Chemistry 02/21/19 08:38 POC Troponin I 0.00 ng/mL ng/mL (0.00-0.08) General Time Seen by Provider: 02/21/19 08:08 Initial Vital Signs: Initial Vital Signs Temperature (C) 36.7 C 02/21/19 08:08 Heart Rate 88 02/21/19 08:08 Respiratory Rate 20 02/21/19 08:08 Blood Pressure 117/50 L 02/21/19 08:08 O2 Sat (%) 96 02/21/19 08:08 O2 Delivery Mode Room Air Allergies/Adverse Reactions: No Known Allergies Allergy (Verified 02/21/19 08:07) Home Medications: Medication Instructions Recorded Aspirin [Aspirin 81mg (*)] 81 mg PO DAILY 12/03/12 Tiotropium Inhaler [Spiriva 1 inh IH DAILY 12/03/12 Inhaler (RX)] celeCOXIB [Celebrex (*)] 200 mg PO DAILY 12/03/12 Disulfiram [Antabuse 250 MG (*)] 250 mg PO DAILY 02/03/19 Tadalafil 5 mg PO DAILY 02/03/19 amLODIPine BESYLATE [Norvasc 10 mg 10 mg PO DAILY 02/03/19 (*)] buPROPion XL [Wellbutrin 150mg XL] 150 mg PO DAILY 02/03/19 Albuterol Sulfate [Proair Hfa] 8.5 gm IH Q6H PRN #1 hfa.[email or web address].[email or web address] 02/09/19 Departure - Departure Disposition: [facility] Inpatient Acute Clinical Impression: Pneumonia Qualifiers: Pneumonia type: due to unspecified organism Laterality: right Lung location: upper lobe of lung Qualified Code(s): J18.1 - Lobar pneumonia, unspecified organism Condition: Fair Report Scribed for: Gordon Deng Report Scribed by: Becki Downey Date of Report: 02/21/19 Time of Report: 08:22 Physician Review and Approval Statement: Portions of this note were transcribed by an ED scribe. I personally performed the history, physical exam, and medical decision making; and confirm the accuracy of the information in the transcribed note.
[2019-02-21 08:43] LABS: PLATELET COUNT 327 10^3/uL (150-400)
[2019-02-21 08:51] LABS: INR 0.96 (0.83-1.16); PROTIME(PATIENT) 12.4 SEC (12.0-15.0)
[2019-02-21] MEDS ORDERED: ONDANSETRON 4 MG/2 ML VIAL IVP PRN (14:55)
[2019-02-21] MEDS ORDERED: ONDANSETRON DISINTEGRATING 4 MG TAB PO PRN (14:55)
[2019-02-21] MEDS ORDERED: ACETAMINOPHEN 325 MG TAB PO PRN (14:55)
[2019-02-21] MEDS ORDERED: ALBUTEROL 3 ML DEYVIAL IH PRN (14:55)
[2019-02-21] MEDS ORDERED: NS 1,000 ML IV SCH (15:00)
--- NOTE | 2019-02-21 15:19 | CPEKG ---
Test Reason : OPEN Blood Pressure : / mmHG Vent. Rate : 074 BPM Atrial Rate : 074 BPM P-R Int : 230 ms QRS Dur : 077 ms QT Int : 366 ms P-R-T Axes : 063 019 071 degrees QTc Int : 406 ms Sinus rhythm Multiple premature complexes, vent & supraven Prolonged [place] interval Anteroseptal infarct, old Confirmed by Gordon Deng ([id number]) on 02/21/2019 3:18:51 PM Referred By: Gordon Deng Confirmed By:Gordon Deng
[2019-02-21] MEDS: IPRATROPIUM/ALBUTEROL 3 ML DEYVIAL IH SCH ×2 (15:45→20:14)
--- NOTE | 2019-02-21 15:47 | GHP ---
[f rep st] HISTORY AND PHYSICAL DATE OF ADMISSION: 02/21/2019 The patient is a pleasant 78-year-old gentleman with minimal past medical history, but he did have a hospitalization at the end of January with a significant right upper lobe pneumonia requiring mechanica l ventilation. He received a course of antibiotics for that and was discharged on Augmentin. Chest imaging is suggestive of possible COPD. Also noted during that hospitalization was a right lower lob e nodule. Bronchial brushings which were not particularly close, said the mass itself were negative for malignancy. He presents to the hospital today about 2 weeks following discharge with generalized weakness, lighth eadedness, dizziness, falls. He has been eating poorly. He has been drinking okay. When I speak wi th him, he says he had some diarrhea after hospitalization while on Augmentin, but it is improved. Eric moreno is not having abdominal pain or cramping. He has had no appetite. He is feeling generalized weakn ess. He does have some chronic right upper extremity weakness that is a couple of years old that is not particularly worse. He has not had fever or chills. He does not have dyspnea on exertion. He has been having a cough that has been dry. REVIEW OF SYSTEMS: Complete 10-point review of systems conducted and negative except as noted in the HPI. PAST MEDICAL HISTORY: Dense right upper lobe pneumonia, alcoholism, status post recent detox, BPH, i nsomnia, depression. SOCIAL HISTORY: Tobacco use: He is a former smoker. He now chews tobacco. He is currently sober, but he has drank heavily for years. He works at teaching students how to drive buses. FAMILY HISTORY: He denies. ALLERGIES: No known drug allergies. MEDICATIONS: Home medications are albuterol, amlodipine, aspirin, bupropion, celecoxib, disulfiram, Tadalafil, tiotropium. LABS: White count 6.7. PHYSICAL EXAMINATION: VITAL SIGNS: Temp 36.7, blood pressure 117/50, pulse 88, breathing 20 times a minute, 96% on room air. His blood pressures were a bit higher during his last hospitalization. GE NERAL: No acute distress, lying flat. HEENT: Sclerae are anicteric. Oropharynx clear. Mucous memb ranes moist. NECK: Supple, without lymphadenopathy or JVD. LUNGS: Show some crackles at the right upper lung dela cruz with good air movement and no wheezing, no prolonged expiratory phase. HEART: S1 , S2 without murmurs. ABDOMEN: Soft, nontender, nondistended. LOWER EXTREMITIES: Without edema. Calves are nontender. SKIN: Without rash. NEUROLOGIC: Exam shows weakness of the deltoid and tric eps in the right arm 4/5. Otherwise 5/5 strength. White count 6.7, hematocrit 33.5, platelets are 327,000, INR is 1. Sodium 137, potassium 4.2, chlori de 104, bicarb 24, BUN 12, creatinine 1.1, his baseline pre hospitalization is 0.7. LFTs are normal. Troponin is normal. Albumin 3.4. UA is negative. Chest x-ray interpreted by me shows resolving r ight upper lobe pneumonia. I reviewed the previous CT, which showed dense right upper lobe pneumonia and a cavitating right lower lobe pneumonia. They are not in communication. The lung dela cruz around his cavitated mass actually do not show pneumonia. EKG shows sinus at 74 with normal axis and inter vals. There are no ST or T-wave changes. I discussed the case with Dr. Ruy Deng. ASSESSMENT/PLAN: A 78-year-old gentleman with a recent hospitalization for right upper lobe pneumoni a and discovered a right lower lobe nodule, presents with generalized weakness, presyncope. 1. Weakness and presyncope. The patient is slightly volume depleted by labs. We will check orthost atics. We will follow him on telemetry and we will evaluate for pulmonary embolism with CT, PE given his recent hospitalization. I believe that these are what is responsible. I will also have PT and OT see him. 2. Right lower lobe nodule, negative airway brushings do not rule out malignancy. I think he needs a definitive lung biopsy. The cavitated nature probably makes this more consistent with previous sca r than malignancy, but his previous smoking history is noted. 3. Falls. I will perform noncontrast head CT to evaluate for mass effect given the potential for ma lignancy. 4. Diarrhea. This is resolved with discontinuation of the Augmentin, so we will follow. I do not t hink this fits the clinical syndrome of C difficile. 5. Airways disease. We will give him scheduled nebulizers for 24 hours and gauge the effect. 6. Prophylaxis. Low molecular heparin. 7. Disposition. Inpatient status. May be a candidate for rehab. We will have PT see him. /[id number]/MODL
[2019-02-21] MEDS ORDERED: IOPAMIDOL (ISOVUE 370) 100 ML BTL IV ONE (15:53)
[2019-02-21] MEDS: traZODone 50 MG TAB PO SCH (21:57)
[2019-02-22 05:08] LABS: PLATELET COUNT 276 10^3/uL (150-400)
[2019-02-22] MEDS: IPRATROPIUM/ALBUTEROL 3 ML DEYVIAL IH SCH ×2 (05:56→11:00)
[2019-02-22] MEDS ORDERED: ASPIRIN 81 MG CHEWABLE TAB PO SCH (09:00)
[2019-02-22] MEDS ORDERED: ENOXAPARIN 40 MG/0.4 ML SYR SC SCH (09:00)
[2019-02-22] MEDS: TADALAFIL 5 MG PO SCH (09:25)
[2019-02-22] MEDS: buPROPion XL 150 MG TAB PO SCH (09:54)
[2019-02-22] MEDS: DISULFIRAM 250 MG TAB PO SCH (09:55)
[2019-02-22] MEDS: TIOTROPIUM INHALER 18 MCG/DOSE 5 DOSE/MDI IH SCH (12:31)
--- NOTE | 2019-02-22 13:13 | HOSPPROG ---
Hospitalist Progress Note Assessment/Plan: 78 yo M w alcoholism in remission, recent pneumonia here w weakness, presyncope and lung nodule lung nodule: bx in AM d/w IR sample pleural fluid for cytology prior pneumonia: resolving by imaging and sx, no further abx presyncope: hypovolemic no events tele no PE head CT ok alcoholism: in remission continue antabuse proph:hold LMWH dispo: change to inpt fo Subjective: case d/w dr meneses, dr hernandez. no events tele (interp by me) Objective: Vital Signs Temp Pulse Resp BP Pulse Ox 37.1 C 80 16 145/79 H 91 L 02/22/19 09:01 02/22/19 09:01 02/22/19 09:01 02/22/19 09:01 02/22/19 09:01 Laboratory Results 02/22/19 04:32 02/22/19 04:32 02/21/19 02/22/19 02/23/19 05:59 05:59 05:59 Intake Total 1220 1400 Output Total 600 200 Balance 620 1200 PT 12.4 SEC (12.0-15.0) 02/21/19 08:30 INR 0.96 (0.83-1.16) 02/21/19 08:30 - Physical Exam Constitutional: no apparent distress, appears nourished Eyes: PERRL, anicteric sclera Ears, Nose, Mouth, Throat: moist mucous membranes, hearing normal Cardiovascular: regular rate and rhythym, no murmur, rub, or gallop Respiratory: no respiratory distress, no rales or rhonchi Gastrointestinal: normoactive bowel sounds, soft, non-tender abdomen Genitourinary: no bladder fullness, No james in urethra Skin: warm, normal color Musculoskeletal: full muscle strength, no muscle tenderness Neurologic: AAOx3 ICD10 Worksheet Patient Problems: Problems Problem Status Onset Pneumonia Acute Dyspnea Acute Hypoxia Acute
[2019-02-22] MEDS ORDERED: LOPERAMIDE HCL 2 MG CAP PO ONE (15:15)
--- NOTE | 2019-02-22 17:24 | PDMN ---
Medical Necessity Medical necessity: Change to inpt as of 02/22/19 @ 17:04, meets inpt criteria per MD order and Thoracic Surgery or Procedure GRG, Lung nodule bx, upgraded to inpt for further workup of lung nodule, bx in AM. 78 y/o w/recent PNA admitted w /weakness, falls, presyncope and lung nodule, hx alcoholism, in remission, on antabuse. Pt also found to have airway disease, nebulizer tx's ordered. Est LOS> 2MN for ongoing eval/management of above.
[2019-02-22] MEDS: traZODone 50 MG TAB PO SCH (20:57)
[2019-02-23] MEDS: buPROPion XL 150 MG TAB PO SCH (08:15)
[2019-02-23] MEDS: DISULFIRAM 250 MG TAB PO SCH (08:15)
[2019-02-23] MEDS: TADALAFIL 5 MG PO SCH (08:18)
[2019-02-23] MEDS ORDERED: NALOXONE HCL 0.4 MG/ML INJ IVP PRN (08:27)
[2019-02-23] MEDS ORDERED: fentaNYL 100 MCG/2 ML INJ IVP PRN (08:27)
[2019-02-23] MEDS ORDERED: FLUMAZENIL 0.5 MG/5 ML MDV IVP PRN (08:27)
[2019-02-23] MEDS ORDERED: MIDAZOLAM 2 MG/2 ML VIAL IVP PRN (08:27)
[2019-02-23] MEDS ORDERED: NS 1,000 ML IV SCH (08:30)
[2019-02-23] MEDS ORDERED: NALOXONE HCL 0.4 MG/ML INJ ONE (08:39)
[2019-02-23] MEDS ORDERED: FLUMAZENIL 0.5 MG/5 ML MDV IVP ONE (08:39)
[2019-02-23] MEDS ORDERED: fentaNYL 100 MCG/2 ML INJ ONE (08:40)
[2019-02-23] MEDS ORDERED: MIDAZOLAM 2 MG/2 ML VIAL ONE (08:40)
[2019-02-23] MEDS: TIOTROPIUM INHALER 18 MCG/DOSE 5 DOSE/MDI IH SCH (09:19)
--- NOTE | 2019-02-23 09:45 | PDHPUP ---
History & Physical Update H&P update statement: This history and physical update is based on an assessment of the patient which was completed after admission or registration (within 24 hours), but prior to the surgery/procedure. Lung mass and right pleural effusion: Plan for thoracentesis and right lower lobe lung mass biopsy. H&P update: H&P reviewed & patient examined, no change in patient's condition since H&P completed
--- NOTE | 2019-02-23 09:46 | PDPROPOC ---
Sedation Plan of Care Sedation Plan of Care: vital signs stable, mental status noted, patient educated of risks, benefits, alternatives, patient can tolerate sedation ASA Classification: ASA 3 Planned drugs: fentanyl, midazolam Mallampati Score: Class 2 Mallampati Reference Image: Patient passed 3-3-2 rule?: Yes
--- NOTE | 2019-02-23 10:29 | PDRADPN ---
Radiology Procedure Note Date of Procedure: 02/23/19 Radiologist: Sujit Romero Anesthesia: IV Sedation Pre-op Diagnosis: RLL mass Post-op Diagnosis: RLL mass Indication: Right lung mass Procedure: CT guided lung mass biopsy Finding(s): 18 ga cores, sent in formalin and saline for path and micro. Inf/Abcess present in the surg proc area at time of surgery?: No
--- NOTE | 2019-02-23 11:54 | ASMTCMCOM ---
CM Note CM Note Notes: Late note from 02/22 CM met with patient. Patient came in with pneumonia, general weakness and lightheadness. Patient states that he lives with his family and wants to be discharged to home. PT eval pending and OT recommending home. CM will follow. Plan: TBD Date Signed: 02/23/2019 11:54 AM Electronically Signed By:Cecilia Blunt
--- NOTE | 2019-02-23 14:28 | HOSPPROG ---
Hospitalist Progress Note Assessment/Plan: 78 yo M w alcoholism in remission, recent pneumonia here w weakness, presyncope and lung nodule lung nodule: bx today path pending results back nect week I have called his PCP re: outpt follow up of results no post procedure ptx pneumonia: resolving by imaging and sx, no further abx presyncope: hypovolemic no events tele no PE head CT ok alcoholism: in remission continue antabuse proph:hold LMWH dispo: home today > 30 minutes on dc Subjective: case d/w dr craig. s.p bx of RLL nodule. no post procedure pneumothorax Objective: Vital Signs Temp Pulse Resp BP Pulse Ox 36.6 C 80 16 122/92 H 95 02/23/19 13:50 02/23/19 13:50 02/23/19 13:50 02/23/19 13:50 02/23/19 13:50 Microbiology 02/23/19 09:40 Gram Stain - Final Pleural Fluid - Aspirate 02/23/19 10:16 Gram Stain - Final Lung - Right Lower Lobe 02/22/19 02/23/19 02/24/19 05:59 05:59 05:59 Intake Total 850 400 Balance 850 400 PT 12.4 SEC (12.0-15.0) 02/21/19 08:30 INR 0.96 (0.83-1.16) 02/21/19 08:30 - Physical Exam Constitutional: no apparent distress, appears nourished Eyes: PERRL, anicteric sclera Ears, Nose, Mouth, Throat: moist mucous membranes, hearing normal Cardiovascular: regular rate and rhythym, no murmur, rub, or gallop Respiratory: no respiratory distress, no rales or rhonchi Gastrointestinal: normoactive bowel sounds, soft, non-tender abdomen Genitourinary: no bladder fullness, No james in urethra Skin: warm, normal color Musculoskeletal: full muscle strength, no muscle tenderness Neurologic: AAOx3, sensation intact bilaterally Psychiatric: interacting appropriately ICD10 Worksheet Patient Problems: Problems Problem Status Onset Pneumonia Acute Dyspnea Acute Hypoxia Acute
--- NOTE | 2019-02-23 14:44 | GDS ---
[f rep st] DISCHARGE SUMMARY DISCHARGE DIAGNOSES: 1. Generalized weakness, now resolved. 2. Orthostatic hypotension secondary to hypovolemia, now resolved. 3. Recent right upper lobe pneumonia, status post course of antibiotics. 4. Right lower lobe nodule concerning for malignancy, status post biopsy. HISTORY AND HOSPITAL COURSE: Please see admission history and physical by Dr. Mitchell Brito. The rafiq paulino presented with presyncope 2 weeks following a recent admission for dense right upper lobe pneu monia requiring mechanical ventilation. The patient had chest imaging suggestive of resolving pneumo jazmin. He did not have fever, chills, or productive sputum consistent with secondary pneumonia. The patient had a creatinine above baseline and orthostatic vital signs. He was hydrated and seen by Physical Therapy with improvement. His hypoxemic respiratory failure had resolved, and he was not r equiring oxygen. Regarding his right lower lobe nodule, it was concerning for cancer. During a previous admission, th rex had done endobronchial brushings. These were far from the mass, so their negativity did not exclu de cancer. He underwent lung biopsy CT, as well as sampling of his residual right pleural effusion. This effusion had previously been sampled with negative cytology. He is discharged home with outpatient followup with his primary care physician, Dr. Falguni Rogers. I have called her office and spoken with her periodicals library assistant. She tells me that Dr. Rogers is aware of t he case. The patient is discharged home on an unchanged medication regimen. TIME SPENT ON DISCHARGE: Greater than 30 minutes was spent on this discharge. /[id number]/MODL
[2019-02-23 14:54] VITALS: BP 118/62
--- NOTE | 2019-02-23 14:55 | ASMTDCNOTE ---
Case Management Discharge Discharge Order Complete? Answers: Yes Patient to Obtain Answers: via Family Medications Transportation Arranged Answers: Family/Friends Discharge Comments Notes: CM spoke with pt and MD. Pt is getting discharged independently. Has been cleared by PT/OT. MD is ok with pt transporting himself home. Pt lives with has no concerns obtaining meds or getting to follow-up appts. No other CM needs identified. Date Signed: 02/23/2019 02:54 PM Electronically Signed By:JOHNNA Calderon
--- NOTE | 2019-02-23 14:56 | ASMTLACE ---
LACE Length of stay for Answers: Less than 1 day current admission Acuity / Level of Answers: Yes Care: Did the patient have an inpatient admission? Comorbidities - select Answers: Chronic pulmonary disease all that apply # of Emergency department Answers: 1-2 visits in the last 6 months Social determinants Answers: History of substance abuse (ETOH, street drugs, prescription drugs, etc.) Score: 9 Date Signed: 02/23/2019 02:56 PM Electronically Signed By:JOHNNA Calderon
== END 2019-02-23 16:07 | disposition home or self-care (01) ==
LOC: SUPCPDRO 08:02 → F1N 11:58 → INTOOBSV 02-22 17:04 → OBSVTOIN 02-22 17:04
PROVIDERS: ADMIT Internal Medicine; ATTEND Internal Medicine
PROC: 0W993ZZ Drainage of Right Pleural Cavity, Percutaneous Approach (ICD-10-PCS; 2019-02-21)
PROC: BB4BZZZ Ultrasonography of Pleura (ICD-10-PCS; 2019-02-21)
PROC: 0BBF3ZX Excision of Right Lower Lung Lobe, Percutaneous Approach, Diagnostic (ICD-10-PCS; principal; 2019-02-23)
PROC: BB271ZZ Computerized Tomography (CT Scan) of Right Tracheobronchial Tree using Low Osmolar Contrast (ICD-10-PCS; principal; 2019-02-23)
DX: J18.9 Pneumonia, unspecified organism (principal); C34.31 Malignant neoplasm of lower lobe, right bronchus or lung; E86.1 Hypovolemia; I95.1 Orthostatic hypotension; R19.7 Diarrhea, unspecified; F10.21 Alcohol dependence, in remission; J44.9 Chronic obstructive pulmonary disease, unspecified; R39.15 Urgency of urination; I10 Essential (primary) hypertension; F32.9 Major depressive disorder, single episode, unspecified; Z87.891 Personal history of nicotine dependence; Z96.659 Presence of unspecified artificial knee joint
CPT/HCPCS: 32405; 32555; 70450; 70460; 71045; 71046; 71275; 77012; 93005; 96361; 96365; 97161; 97165; 99152; 99285; G0378; 84484-ER; J0696; J1650; J2250; J2310; J3010; Q9967

== ENCOUNTER → 2019-03-16 | Outpatient (CLI) | payer OTHER | LOC: FIMAGING 12:51 | PROVIDERS: ATTEND Nurse Practitioner | DX: C34.90 Malignant neoplasm of unspecified part of unspecified bronchus or lung (principal) | CPT/HCPCS: A9503 ==

== ENCOUNTER 2019-05-13 12:02 | Observation (INO) | payer OTHER | END 2019-05-15 12:10 | disposition home or self-care (01) | LOC: F2W 05-14 16:52 → F1N 14:45 ==